=== PATIENT | female | born 1995 | race Two or more races ===

== ENCOUNTER 2021-09-17 16:46 | Inpatient (IN) | payer OTHER ==
[2021-09-17 17:51] VITALS: BMI 22.7
[2021-09-17] MEDS ORDERED: MAGNESIUM CITRATE 300 ML BOTTLE PO PRN (19:36)
[2021-09-17] MEDS ORDERED: MAGNESIUM HYDROX 2400MG/30ML ORAL SUSPENSION 30 ML CUP PO PRN (19:36)
[2021-09-17] MEDS ORDERED: BISMUTH SUBSALICYLATE 524 MG/30 ML PO PRN (19:36)
[2021-09-17] MEDS ORDERED: MAG HYDROX/AL HYDROX/SIMETH 30 ML UNIT-DOSE CUP PO PRN (19:36)
[2021-09-17] MEDS ORDERED: ONDANSETRON *ODT* 4 MG TABLET SL PRN (19:36)
[2021-09-17] MEDS ORDERED: MENTHOL/PHENOL 1 EACH UD MM PRN (19:36)
[2021-09-17] MEDS ORDERED: IBUPROFEN 400 MG TABLET (FP) PO PRN (19:36)
[2021-09-17] MEDS ORDERED: ACETAMINOPHEN 325 MG TABLET (FP) PO PRN ×2 (19:36)
[2021-09-17] MEDS ORDERED: diazePAM 5 MG TABLET PO ONE (19:38)
[2021-09-17] MEDS: THIAMINE HCL 100 MG TABLET (FP) PO SCH (21:40)
[2021-09-17] MEDS ORDERED: MELATONIN 5 MG TABLETS PO SCH (22:00)
[2021-09-17] MEDS: diazePAM 5 MG TABLET PO SCH (22:59)
[2021-09-18] MEDS: diazePAM 5 MG TABLET PO SCH ×4 (05:21→22:07)
[2021-09-18] MEDS: PRENATAL VITAMINS W/ FOLIC ACID TABLET (FP) PO SCH (10:19)
[2021-09-18] MEDS: ESCITALOPRAM OXALATE 20 MG TABLET PO SCH (10:19)
[2021-09-18] MEDS: METHOCARBAMOL 500 MG TABLET PO PRN ×2 (11:08→22:07)
[2021-09-18] MEDS ORDERED: FLU VACC QS2021-22(6MOS UP)/PF 60 MCG/0.5 ML SYRINGE IM ONE (13:00)
[2021-09-18] MEDS: diazePAM 5 MG TABLET PO PRN (15:21)
[2021-09-18] MEDS ORDERED: SUVOREXANT 10 MG TABLET PO PRN (22:00)
[2021-09-18] MEDS: hydrOXYzine PAMOATE 25 MG CAPSULE (FP) PO PRN (22:07)
[2021-09-18] MEDS: THIAMINE HCL 100 MG TABLET (FP) PO SCH (22:17)
[2021-09-19] MEDS: diazePAM 5 MG TABLET PO SCH ×3 (06:35→22:17)
[2021-09-19] MEDS: diazePAM 5 MG TABLET PO PRN (10:09)
[2021-09-19] MEDS: PRENATAL VITAMINS W/ FOLIC ACID TABLET (FP) PO SCH (10:09)
[2021-09-19] MEDS: ESCITALOPRAM OXALATE 20 MG TABLET PO SCH (10:09)
[2021-09-19 10:59] LABS: HEMATOCRIT 39.3 % (32.4-45.2); HEMOGLOBIN 12.9 GM/dL (10.7-15.3); MCH 27.6 pg (25.7-33.7); MCHC 32.8 g/dl (32.0-36.0); MEAN CELL VOLUME 83.9 fl (80-96); MEAN PLT VOLUME 8.5 fl (7.5-11.1); PLATELET COUNT 385 10^3/uL (134-434); RBC 4.69 M/mm3 (3.60-5.2); WHITE BLOOD COUNT 7.2 K/mm3 (4.0-10.0)
[2021-09-19 11:02] LABS: CALCIUM 10.2 mg/dL (8.5-10.1)
[2021-09-19 11:03] LABS: ALBUMIN 4.4 g/dl (3.4-5.0); BLOOD UREA NITROGEN 4.5 mg/dL (7-18)
[2021-09-19 11:06] LABS: CREATININE 0.7 mg/dL (0.55-1.3)
[2021-09-19 11:07] LABS: BILIRUBIN,TOTAL 1.1 mg/dL (0.2-1); TOT PROT 8.6 g/dl (6.4-8.2)
[2021-09-19] MEDS: NICOTINE POLACRILEX 2 MG GUM BUC PRN ×2 (13:01→18:43)
[2021-09-19] MEDS: THIAMINE HCL 100 MG TABLET (FP) PO SCH (22:16)
[2021-09-19] MEDS: METHOCARBAMOL 500 MG TABLET PO PRN (22:18)
[2021-09-20] MEDS: diazePAM 5 MG TABLET PO SCH ×2 (05:59→17:47)
[2021-09-20] MEDS: PRENATAL VITAMINS W/ FOLIC ACID TABLET (FP) PO SCH (10:07)
[2021-09-20] MEDS: ESCITALOPRAM OXALATE 20 MG TABLET PO SCH (10:07)
[2021-09-20] MEDS: METHOCARBAMOL 500 MG TABLET PO PRN ×2 (10:08→22:32)
[2021-09-20] MEDS ORDERED: POTASSIUM CHLORIDE TABS 20 MEQ TABLET.ER (FP) PO ONE (10:20)
[2021-09-20] MEDS ORDERED: FLUCONAZOLE 50 MG TABLET PO ONE (13:39)
[2021-09-20] MEDS: MUPIROCIN 2% TOPICAL OINTMENT 22 GM TUBE TP SCH ×3 (14:21→23:09)
[2021-09-20 14:39] LABS: CALCIUM 10.4 mg/dL (8.5-10.1)
[2021-09-20 14:40] LABS: ALBUMIN 4.2 g/dl (3.4-5.0); BLOOD UREA NITROGEN 6.6 mg/dL (7-18)
[2021-09-20 14:43] LABS: CREATININE 0.7 mg/dL (0.55-1.3)
[2021-09-20 14:44] LABS: BILIRUBIN,TOTAL 0.8 mg/dL (0.2-1)
[2021-09-20 14:45] LABS: TOT PROT 8.5 g/dl (6.4-8.2)
[2021-09-20] MEDS: hydrOXYzine PAMOATE 25 MG CAPSULE (FP) PO PRN ×2 (17:50→22:33)
[2021-09-20] MEDS ORDERED: QUEtiapine FUMARATE 50 MG TABLET PO SCH (22:00)
[2021-09-20] MEDS: THIAMINE HCL 100 MG TABLET (FP) PO SCH (22:33)
[2021-09-20] MEDS ORDERED: diazePAM 5 MG TABLET PO ONE (22:52)
[2021-09-21] MEDS ORDERED: diazePAM 5 MG TABLET PO ONE (06:00)
[2021-09-21 06:18] VITALS: PULSE 89
[2021-09-21 08:47] VITALS: BP 118/84; TEMP 96.9
[2021-09-21] MEDS ORDERED: POTASSIUM CHLORIDE TABS 20 MEQ TABLET.ER (FP) PO SCH (10:00)
[2021-09-21] MEDS: METHOCARBAMOL 500 MG TABLET PO PRN (10:16)
[2021-09-21] MEDS: PRENATAL VITAMINS W/ FOLIC ACID TABLET (FP) PO SCH (10:17)
[2021-09-21] MEDS: ESCITALOPRAM OXALATE 20 MG TABLET PO SCH (10:19)
[2021-09-21] MEDS: MUPIROCIN 2% TOPICAL OINTMENT 22 GM TUBE TP SCH (10:52)
== END 2021-09-21 11:37 | disposition other institution (70) | DRG 775 ==
LOC: YASAS 16:46 → Y3N 19:41
PROVIDERS: ADMIT Allergy & Immunology; ATTEND Allergy & Immunology
PROC: HZ2ZZZZ Detoxification Services for Substance Abuse Treatment (ICD-10-PCS; principal; 2021-09-17)
DX: F10.230 Alcohol dependence with withdrawal, uncomplicated (principal); F12.10 Cannabis abuse, uncomplicated; F17.210 Nicotine dependence, cigarettes, uncomplicated; F10.280 Alcohol dependence with alcohol-induced anxiety disorder; F10.282 Alcohol dependence with alcohol-induced sleep disorder; F31.81 Bipolar II disorder; G47.00 Insomnia, unspecified; R94.5 Abnormal results of liver function studies; R79.89 Other specified abnormal findings of blood chemistry; Z86.16 Personal history of COVID-19; Z86.69 Personal history of other diseases of the nervous system and sense organs
CPT/HCPCS: 36415; 80053; 85027; 86780; 90686; C9803; G0008; U0003; U0005

== ENCOUNTER 2021-09-21 11:46 | Inpatient (IN) | payer OTHER ==
[2021-09-21] MEDS ORDERED: MAG HYDROX/AL HYDROX/SIMETH 30 ML UNIT-DOSE CUP PO PRN (15:16)
[2021-09-21] MEDS ORDERED: MAGNESIUM CITRATE 300 ML BOTTLE PO PRN (15:16)
[2021-09-21] MEDS ORDERED: MENTHOL/PHENOL 1 EACH UD MM PRN (15:16)
[2021-09-21] MEDS ORDERED: NICOTINE POLACRILEX 2 MG GUM BUC PRN (15:16)
[2021-09-21] MEDS ORDERED: ACETAMINOPHEN 325 MG TABLET (FP) PO PRN (15:16)
[2021-09-21] MEDS ORDERED: LOPERAMIDE HCL 2 MG CAPSULE PO PRN (15:16)
[2021-09-21] MEDS ORDERED: IBUPROFEN 400 MG TABLET (FP) PO PRN (15:16)
[2021-09-21] MEDS ORDERED: MAGNESIUM HYDROX 2400MG/30ML ORAL SUSPENSION 30 ML CUP PO PRN (15:16)
[2021-09-21] MEDS ORDERED: P-EPHED 60MG/TRIPROLIDI 2.5MG TABLET PO PRN (15:16)
[2021-09-21] MEDS ORDERED: guaiFENesin 200 MG/10 ML 10 ML UNIT-DOSE CUPS PO PRN (15:16)
[2021-09-21] MEDS: NICOTINE 10 MG CARTRIDGE (INHALER) IH PRN (19:03)
[2021-09-21] MEDS: MELATONIN 5 MG TABLETS PO SCH (21:50)
[2021-09-21] MEDS: MUPIROCIN 2% TOPICAL OINTMENT 22 GM TUBE TP SCH (21:50)
[2021-09-21] MEDS: THIAMINE HCL 100 MG TABLET (FP) PO SCH (21:52)
[2021-09-21] MEDS: hydrOXYzine PAMOATE 25 MG CAPSULE (FP) PO PRN (21:54)
[2021-09-21] MEDS ORDERED: QUEtiapine FUMARATE 50 MG TABLET PO SCH (22:00)
[2021-09-21] MEDS ORDERED: QUEtiapine FUMARATE 100 MG TABLET (FP) PO SCH (22:00)
[2021-09-22] MEDS ORDERED: FLUCONAZOLE 50 MG TABLET PO ONE (10:00)
[2021-09-22] MEDS: ESCITALOPRAM OXALATE 20 MG TABLET PO SCH (10:23)
[2021-09-22] MEDS: MUPIROCIN 2% TOPICAL OINTMENT 22 GM TUBE TP SCH ×2 (10:23→21:14)
[2021-09-22] MEDS: PRENATAL VITAMINS W/ FOLIC ACID TABLET (FP) PO SCH (10:23)
[2021-09-22] MEDS: hydrOXYzine PAMOATE 25 MG CAPSULE (FP) PO PRN ×2 (10:24→21:15)
[2021-09-22] MEDS: GABAPENTIN 100 MG CAPSULE PO SCH ×2 (16:33→21:14)
[2021-09-22] MEDS: THIAMINE HCL 100 MG TABLET (FP) PO SCH (21:14)
[2021-09-22] MEDS: MELATONIN 5 MG TABLETS PO SCH (21:14)
[2021-09-22] MEDS: METHOCARBAMOL 500 MG TABLET PO PRN (21:14)
[2021-09-22] MEDS: QUEtiapine FUMARATE 50 MG TABLET PO SCH (21:16)
[2021-09-23] MEDS: GABAPENTIN 100 MG CAPSULE PO SCH ×3 (06:59→21:34)
[2021-09-23] MEDS: PRENATAL VITAMINS W/ FOLIC ACID TABLET (FP) PO SCH (10:47)
[2021-09-23] MEDS: ESCITALOPRAM OXALATE 20 MG TABLET PO SCH (10:48)
[2021-09-23] MEDS: MUPIROCIN 2% TOPICAL OINTMENT 22 GM TUBE TP SCH ×2 (10:48→21:34)
[2021-09-23] MEDS: hydrOXYzine PAMOATE 25 MG CAPSULE (FP) PO PRN ×3 (10:48→21:34)
[2021-09-23] MEDS: METHOCARBAMOL 500 MG TABLET PO PRN ×2 (10:48→21:35)
[2021-09-23] MEDS ORDERED: QUEtiapine FUMARATE 25 MG TABLET ONE (19:31)
[2021-09-23] MEDS: QUEtiapine FUMARATE 50 MG TABLET PO SCH (21:34)
[2021-09-23] MEDS: MELATONIN 5 MG TABLETS PO SCH (21:35)
[2021-09-23] MEDS: THIAMINE HCL 100 MG TABLET (FP) PO SCH (21:35)
[2021-09-24] MEDS: GABAPENTIN 100 MG CAPSULE PO SCH ×3 (06:42→22:00)
[2021-09-24] MEDS: PRENATAL VITAMINS W/ FOLIC ACID TABLET (FP) PO SCH (10:54)
[2021-09-24] MEDS: ESCITALOPRAM OXALATE 20 MG TABLET PO SCH (10:54)
[2021-09-24] MEDS: hydrOXYzine PAMOATE 25 MG CAPSULE (FP) PO PRN ×3 (10:56→22:00)
[2021-09-24] MEDS: MUPIROCIN 2% TOPICAL OINTMENT 22 GM TUBE TP SCH ×2 (10:56→22:01)
[2021-09-24] MEDS: METHOCARBAMOL 500 MG TABLET PO PRN ×2 (14:19→22:00)
[2021-09-24] MEDS: NICOTINE 10 MG CARTRIDGE (INHALER) IH PRN (16:44)
[2021-09-24] MEDS: THIAMINE HCL 100 MG TABLET (FP) PO SCH (22:00)
[2021-09-24] MEDS: QUEtiapine FUMARATE 50 MG TABLET PO SCH (22:00)
[2021-09-24] MEDS: MELATONIN 5 MG TABLETS PO SCH (22:01)
[2021-09-25] MEDS: GABAPENTIN 100 MG CAPSULE PO SCH ×3 (06:28→21:43)
[2021-09-25] MEDS ORDERED: PT OWN MED DRAWER 7, Y5N ONE (08:51)
[2021-09-25] MEDS: PRENATAL VITAMINS W/ FOLIC ACID TABLET (FP) PO SCH (10:25)
[2021-09-25] MEDS: ESCITALOPRAM OXALATE 20 MG TABLET PO SCH (10:25)
[2021-09-25] MEDS: MUPIROCIN 2% TOPICAL OINTMENT 22 GM TUBE TP SCH ×2 (10:25→23:09)
[2021-09-25] MEDS: METHOCARBAMOL 500 MG TABLET PO PRN ×2 (10:26→21:43)
[2021-09-25] MEDS: QUEtiapine FUMARATE 50 MG TABLET PO SCH (21:43)
[2021-09-25] MEDS: THIAMINE HCL 100 MG TABLET (FP) PO SCH (21:43)
[2021-09-25] MEDS: MELATONIN 5 MG TABLETS PO SCH (21:44)
[2021-09-25] MEDS: hydrOXYzine PAMOATE 25 MG CAPSULE (FP) PO PRN (21:46)
[2021-09-26] MEDS: GABAPENTIN 100 MG CAPSULE PO SCH ×3 (06:35→21:23)
[2021-09-26] MEDS: ESCITALOPRAM OXALATE 20 MG TABLET PO SCH (10:20)
[2021-09-26] MEDS: MUPIROCIN 2% TOPICAL OINTMENT 22 GM TUBE TP SCH ×2 (10:20→21:25)
[2021-09-26] MEDS: NICOTINE 10 MG CARTRIDGE (INHALER) IH PRN (10:20)
[2021-09-26] MEDS: PRENATAL VITAMINS W/ FOLIC ACID TABLET (FP) PO SCH (10:20)
[2021-09-26] MEDS: THIAMINE HCL 100 MG TABLET (FP) PO SCH (21:23)
[2021-09-26] MEDS: QUEtiapine FUMARATE 50 MG TABLET PO SCH (21:23)
[2021-09-26] MEDS: METHOCARBAMOL 500 MG TABLET PO PRN (21:24)
[2021-09-26] MEDS: MELATONIN 5 MG TABLETS PO SCH (21:25)
[2021-09-27] MEDS: hydrOXYzine PAMOATE 25 MG CAPSULE (FP) PO PRN ×3 (04:00→21:44)
[2021-09-27] MEDS: METHOCARBAMOL 500 MG TABLET PO PRN ×3 (04:00→21:44)
[2021-09-27] MEDS: GABAPENTIN 100 MG CAPSULE PO SCH ×3 (07:49→21:44)
[2021-09-27] MEDS: PRENATAL VITAMINS W/ FOLIC ACID TABLET (FP) PO SCH (10:43)
[2021-09-27] MEDS: ESCITALOPRAM OXALATE 20 MG TABLET PO SCH (10:43)
[2021-09-27] MEDS: NICOTINE 10 MG CARTRIDGE (INHALER) IH PRN (10:45)
[2021-09-27] MEDS: MUPIROCIN 2% TOPICAL OINTMENT 22 GM TUBE TP SCH ×2 (14:41→21:44)
[2021-09-27] MEDS: MELATONIN 5 MG TABLETS PO SCH (21:44)
[2021-09-27] MEDS: QUEtiapine FUMARATE 50 MG TABLET PO SCH (21:44)
[2021-09-27] MEDS: THIAMINE HCL 100 MG TABLET (FP) PO SCH (21:44)
[2021-09-28] MEDS: GABAPENTIN 100 MG CAPSULE PO SCH ×3 (06:39→22:24)
[2021-09-28] MEDS: MUPIROCIN 2% TOPICAL OINTMENT 22 GM TUBE TP SCH ×2 (10:10→23:09)
[2021-09-28] MEDS: PRENATAL VITAMINS W/ FOLIC ACID TABLET (FP) PO SCH (10:10)
[2021-09-28] MEDS: ESCITALOPRAM OXALATE 20 MG TABLET PO SCH (10:10)
[2021-09-28] MEDS: NICOTINE 10 MG CARTRIDGE (INHALER) IH PRN (16:53)
[2021-09-28] MEDS: hydrOXYzine PAMOATE 25 MG CAPSULE (FP) PO PRN (22:24)
[2021-09-28] MEDS: QUEtiapine FUMARATE 50 MG TABLET PO SCH (22:24)
[2021-09-28] MEDS: THIAMINE HCL 100 MG TABLET (FP) PO SCH (22:24)
[2021-09-28] MEDS: METHOCARBAMOL 500 MG TABLET PO PRN (22:25)
[2021-09-28] MEDS: MELATONIN 5 MG TABLETS PO SCH (23:09)
[2021-09-29] MEDS: GABAPENTIN 100 MG CAPSULE PO SCH ×3 (06:40→22:19)
[2021-09-29] MEDS: ESCITALOPRAM OXALATE 20 MG TABLET PO SCH (10:16)
[2021-09-29] MEDS: MUPIROCIN 2% TOPICAL OINTMENT 22 GM TUBE TP SCH ×2 (10:16→21:33)
[2021-09-29] MEDS: PRENATAL VITAMINS W/ FOLIC ACID TABLET (FP) PO SCH (10:16)
[2021-09-29] MEDS: NICOTINE 10 MG CARTRIDGE (INHALER) IH PRN ×2 (10:18→19:14)
[2021-09-29] MEDS: MELATONIN 5 MG TABLETS PO SCH (21:30)
[2021-09-29] MEDS: THIAMINE HCL 100 MG TABLET (FP) PO SCH (21:30)
[2021-09-29] MEDS: QUEtiapine FUMARATE 50 MG TABLET PO SCH (21:30)
[2021-09-29] MEDS: hydrOXYzine PAMOATE 25 MG CAPSULE (FP) PO PRN (21:33)
[2021-09-29] MEDS: METHOCARBAMOL 500 MG TABLET PO PRN (21:34)
[2021-09-30] MEDS: GABAPENTIN 100 MG CAPSULE PO SCH ×3 (06:31→21:38)
[2021-09-30] MEDS: PRENATAL VITAMINS W/ FOLIC ACID TABLET (FP) PO SCH (10:17)
[2021-09-30] MEDS: METHOCARBAMOL 500 MG TABLET PO PRN ×2 (10:18→21:38)
[2021-09-30] MEDS: ESCITALOPRAM OXALATE 20 MG TABLET PO SCH (10:18)
[2021-09-30] MEDS: MUPIROCIN 2% TOPICAL OINTMENT 22 GM TUBE TP SCH ×2 (10:19→21:39)
[2021-09-30] MEDS: NICOTINE 10 MG CARTRIDGE (INHALER) IH PRN (20:35)
[2021-09-30] MEDS: hydrOXYzine PAMOATE 25 MG CAPSULE (FP) PO PRN (21:38)
[2021-09-30] MEDS: THIAMINE HCL 100 MG TABLET (FP) PO SCH (21:38)
[2021-09-30] MEDS: QUEtiapine FUMARATE 50 MG TABLET PO SCH (21:38)
[2021-09-30] MEDS: MELATONIN 5 MG TABLETS PO SCH (21:39)
[2021-10-01] MEDS: GABAPENTIN 100 MG CAPSULE PO SCH ×3 (06:36→21:56)
[2021-10-01] MEDS: METHOCARBAMOL 500 MG TABLET PO PRN ×2 (10:03→21:56)
[2021-10-01] MEDS: hydrOXYzine PAMOATE 25 MG CAPSULE (FP) PO PRN ×3 (10:03→21:56)
[2021-10-01] MEDS: PRENATAL VITAMINS W/ FOLIC ACID TABLET (FP) PO SCH (10:03)
[2021-10-01] MEDS: ESCITALOPRAM OXALATE 20 MG TABLET PO SCH (10:03)
[2021-10-01] MEDS: MUPIROCIN 2% TOPICAL OINTMENT 22 GM TUBE TP SCH ×2 (10:03→21:57)
[2021-10-01] MEDS: THIAMINE HCL 100 MG TABLET (FP) PO SCH (21:56)
[2021-10-01] MEDS: QUEtiapine FUMARATE 50 MG TABLET PO SCH (21:56)
[2021-10-01] MEDS: MELATONIN 5 MG TABLETS PO SCH (21:57)
[2021-10-02] MEDS: GABAPENTIN 100 MG CAPSULE PO SCH ×2 (06:34→13:13)
[2021-10-02 06:52] VITALS: BP 123/79; PULSE 80; TEMP 97.5
[2021-10-02] MEDS: PRENATAL VITAMINS W/ FOLIC ACID TABLET (FP) PO SCH (10:31)
[2021-10-02] MEDS: MUPIROCIN 2% TOPICAL OINTMENT 22 GM TUBE TP SCH (10:31)
[2021-10-02] MEDS: ESCITALOPRAM OXALATE 20 MG TABLET PO SCH (10:31)
== END 2021-10-02 14:00 | disposition home or self-care (01) | DRG 772 ==
LOC: YASAS 11:46 → Y5N 11:51
PROVIDERS: ADMIT Allergy & Immunology; ATTEND Allergy & Immunology
PROC: HZ42ZZZ Group Counseling for Substance Abuse Treatment, Cognitive-Behavioral (ICD-10-PCS; principal; 2021-09-21)
DX: F10.20 Alcohol dependence, uncomplicated (principal); F12.10 Cannabis abuse, uncomplicated; F17.210 Nicotine dependence, cigarettes, uncomplicated; F31.81 Bipolar II disorder; F41.9 Anxiety disorder, unspecified; G47.00 Insomnia, unspecified; Z62.810 Personal history of physical and sexual abuse in childhood; Z86.16 Personal history of COVID-19; Z86.69 Personal history of other diseases of the nervous system and sense organs

== ENCOUNTER 2021-12-15 08:12 | Inpatient (IN) | payer OTHER ==
[2021-12-15 09:18] VITALS: BMI 20.6
[2021-12-15] MEDS ORDERED: chlordiazePOXIDE HCL 25 MG CAPSULE PO ONE ×2 (09:43→14:27)
[2021-12-15] MEDS ORDERED: ACETAMINOPHEN 325 MG TABLET (FP) PO PRN ×2 (09:43)
[2021-12-15] MEDS ORDERED: IBUPROFEN 400 MG TABLET (FP) PO PRN (09:43)
[2021-12-15] MEDS ORDERED: ONDANSETRON *ODT* 4 MG TABLET SL PRN (09:43)
[2021-12-15] MEDS ORDERED: MAGNESIUM CITRATE 300 ML BOTTLE PO PRN (09:43)
[2021-12-15] MEDS ORDERED: BISMUTH SUBSALICYLATE 524 MG/30 ML PO PRN (09:43)
[2021-12-15] MEDS ORDERED: MENTHOL/PHENOL 1 EACH UD MM PRN (09:43)
[2021-12-15] MEDS ORDERED: MAG HYDROX/AL HYDROX/SIMETH 30 ML UNIT-DOSE CUP PO PRN (09:43)
[2021-12-15] MEDS: PRENATAL VITAMINS W/ FOLIC ACID TABLET (FP) PO SCH (13:03)
[2021-12-15] MEDS: chlordiazePOXIDE HCL 25 MG CAPSULE PO PRN (13:19)
[2021-12-15] MEDS: chlordiazePOXIDE HCL 25 MG CAPSULE PO SCH ×3 (13:19→22:11)
[2021-12-15] MEDS: hydrOXYzine PAMOATE 25 MG CAPSULE (FP) PO SCH ×4 (13:19→22:11)
[2021-12-15] MEDS: METHOCARBAMOL 500 MG TABLET PO PRN ×2 (14:40→22:49)
[2021-12-15] MEDS: MELATONIN 5 MG TABLETS PO SCH (22:10)
[2021-12-15] MEDS: GABAPENTIN 100 MG CAPSULE PO SCH (22:10)
[2021-12-15] MEDS: QUEtiapine FUMARATE 50 MG TABLET PO SCH (22:11)
[2021-12-15] MEDS: THIAMINE HCL 100 MG TABLET (FP) PO SCH (22:11)
[2021-12-16] MEDS: GABAPENTIN 100 MG CAPSULE PO SCH ×3 (05:24→22:03)
[2021-12-16] MEDS: chlordiazePOXIDE HCL 25 MG CAPSULE PO SCH ×4 (05:24→22:04)
[2021-12-16] MEDS: hydrOXYzine PAMOATE 25 MG CAPSULE (FP) PO SCH ×5 (05:24→22:03)
[2021-12-16] MEDS: MAGNESIUM HYDROX 2400MG/30ML ORAL SUSPENSION 30 ML CUP PO PRN (05:26)
[2021-12-16] MEDS: METHOCARBAMOL 500 MG TABLET PO PRN ×2 (05:26→15:03)
[2021-12-16] MEDS: ESCITALOPRAM OXALATE 10 MG TABLET PO SCH (10:29)
[2021-12-16] MEDS: PRENATAL VITAMINS W/ FOLIC ACID TABLET (FP) PO SCH (10:29)
[2021-12-16] MEDS: chlordiazePOXIDE HCL 25 MG CAPSULE PO PRN (15:03)
[2021-12-16] MEDS: QUEtiapine FUMARATE 50 MG TABLET PO SCH (22:03)
[2021-12-16] MEDS: MELATONIN 5 MG TABLETS PO SCH (22:03)
[2021-12-16] MEDS: THIAMINE HCL 100 MG TABLET (FP) PO SCH (22:03)
[2021-12-17] MEDS: chlordiazePOXIDE HCL 25 MG CAPSULE PO SCH ×4 (06:42→22:40)
[2021-12-17] MEDS: GABAPENTIN 100 MG CAPSULE PO SCH ×3 (06:42→22:17)
[2021-12-17] MEDS: hydrOXYzine PAMOATE 25 MG CAPSULE (FP) PO SCH ×5 (06:42→22:17)
[2021-12-17] MEDS: PRENATAL VITAMINS W/ FOLIC ACID TABLET (FP) PO SCH (10:15)
[2021-12-17] MEDS: ESCITALOPRAM OXALATE 10 MG TABLET PO SCH (10:16)
[2021-12-17] MEDS: QUEtiapine FUMARATE 50 MG TABLET PO SCH (22:17)
[2021-12-17] MEDS: THIAMINE HCL 100 MG TABLET (FP) PO SCH (22:17)
[2021-12-17] MEDS: MELATONIN 5 MG TABLETS PO SCH (22:17)
[2021-12-18] MEDS ORDERED: chlordiazePOXIDE HCL 10 MG CAPSULE PO PRN
[2021-12-18] MEDS: GABAPENTIN 100 MG CAPSULE PO SCH ×3 (06:48→22:10)
[2021-12-18] MEDS: chlordiazePOXIDE HCL 10 MG CAPSULE PO SCH ×2 (06:48→10:14)
[2021-12-18] MEDS: hydrOXYzine PAMOATE 25 MG CAPSULE (FP) PO SCH ×5 (06:48→22:10)
[2021-12-18] MEDS: MAGNESIUM HYDROX 2400MG/30ML ORAL SUSPENSION 30 ML CUP PO PRN (06:53)
[2021-12-18] MEDS: PRENATAL VITAMINS W/ FOLIC ACID TABLET (FP) PO SCH (10:13)
[2021-12-18] MEDS: ESCITALOPRAM OXALATE 10 MG TABLET PO SCH (10:13)
[2021-12-18] MEDS: METHOCARBAMOL 500 MG TABLET PO PRN (10:13)
[2021-12-18 11:56] LABS: BASO % 0.4 % (0-2.0); EOS % 3.6 % (0-4.5); HEMATOCRIT 42.2 % (32.4-45.2); HEMOGLOBIN 13.6 GM/dL (10.7-15.3); MCH 26.5 pg (25.7-33.7); MCHC 32.2 g/dl (32.0-36.0); MEAN CELL VOLUME 82.5 fl (80-96); MEAN PLT VOLUME 9.4 fl (7.5-11.1); MONO % 9.3 % (3.8-10.2); NEUT % 60.7 % (42.8-82.8); PLATELET COUNT 270 10^3/uL (134-434); RBC 5.12 M/mm3 (3.60-5.2); RDW 18.5 % (11.6-15.6); WHITE BLOOD COUNT 6.6 K/mm3 (4.0-10.0)
[2021-12-18 12:52] LABS: CHLORIDE 82 mmol/L (98-107); SODIUM 134 mmol/L (136-145)
[2021-12-18 13:25] LABS: ALBUMIN 4.3 g/dl (3.4-5.0); CO2 41 mmol/L (21-32); GLUCOSE,RANDOM 81 mg/dL (74-106)
[2021-12-18 13:26] LABS: BLOOD UREA NITROGEN 8.5 mg/dL (7-18)
[2021-12-18 13:29] LABS: CREATININE 0.8 mg/dL (0.55-1.3); SGOT/AST 182 U/L (15-37); SGPT/ALT 102 U/L (13-61)
[2021-12-18 13:31] LABS: ALK PHOS 119 U/L (45-117); BILIRUBIN,TOTAL 1.3 mg/dL (0.2-1); TOT PROT 8.5 g/dl (6.4-8.2)
[2021-12-18 13:36] LABS: ANION GAP 11 MMOL/L (8-16)
[2021-12-18] MEDS ORDERED: POTASSIUM CHLORIDE TABS 20 MEQ TABLET.ER (FP) PO ONE ×3 (14:18→22:00)
[2021-12-18] MEDS: diazePAM 5 MG TABLET PO SCH ×2 (14:32→22:11)
[2021-12-18] MEDS: QUEtiapine FUMARATE 50 MG TABLET PO SCH (22:09)
[2021-12-18] MEDS: MELATONIN 5 MG TABLETS PO SCH (22:10)
[2021-12-18] MEDS: THIAMINE HCL 100 MG TABLET (FP) PO SCH (22:38)
[2021-12-19] MEDS ORDERED: chlordiazePOXIDE HCL 10 MG CAPSULE PO SCH (05:00)
[2021-12-19] MEDS: GABAPENTIN 100 MG CAPSULE PO SCH (05:54)
[2021-12-19] MEDS: hydrOXYzine PAMOATE 25 MG CAPSULE (FP) PO SCH (05:54)
[2021-12-19] MEDS ORDERED: diazePAM 5 MG TABLET PO ONE (06:00)
[2021-12-19] MEDS: MAGNESIUM HYDROX 2400MG/30ML ORAL SUSPENSION 30 ML CUP PO PRN (06:03)
[2021-12-19 08:36] VITALS: BP 119/79; PULSE 85; TEMP 96.8
[2021-12-20] MEDS ORDERED: chlordiazePOXIDE HCL 10 MG CAPSULE PO ONE (05:00)
== END 2021-12-19 10:03 | disposition home or self-care (01) | DRG 775 ==
LOC: YASAS 08:12 → Y3N 12:37
PROVIDERS: ADMIT Allergy & Immunology; ATTEND Allergy & Immunology
DX: F10.230 Alcohol dependence with withdrawal, uncomplicated (principal); F12.20 Cannabis dependence, uncomplicated; F31.81 Bipolar II disorder; F19.24 Other psychoactive substance dependence with psychoactive substance-induced mood disorder; E87.6 Hypokalemia; G47.00 Insomnia, unspecified; R94.5 Abnormal results of liver function studies; R63.4 Abnormal weight loss; Z68.20 Body mass index [BMI] 20.0-20.9, adult; Z86.16 Personal history of COVID-19; Z87.01 Personal history of pneumonia (recurrent); Z87.891 Personal history of nicotine dependence; Z86.69 Personal history of other diseases of the nervous system and sense organs
CPT/HCPCS: 36415; 80053; 81025; 85025; 86780; C9803; U0003; U0005

== ENCOUNTER 2022-01-09 19:47 | Inpatient (IN) | payer OTHER ==
[2022-01-09 22:20] VITALS: BMI 20.6
[2022-01-09] MEDS ORDERED: BISMUTH SUBSALICYLATE 524 MG/30 ML PO PRN (23:15)
[2022-01-09] MEDS ORDERED: LOPERAMIDE HCL 2 MG CAPSULE PO PRN (23:15)
[2022-01-09] MEDS ORDERED: MAGNESIUM CITRATE 300 ML BOTTLE PO PRN (23:15)
[2022-01-09] MEDS ORDERED: ACETAMINOPHEN 325 MG TABLET (FP) PO PRN (23:15)
[2022-01-09] MEDS ORDERED: MAG HYDROX/AL HYDROX/SIMETH 30 ML UNIT-DOSE CUP PO PRN (23:15)
[2022-01-09] MEDS ORDERED: MENTHOL/PHENOL 1 EACH UD MM PRN (23:15)
[2022-01-09] MEDS ORDERED: ONDANSETRON *ODT* 4 MG TABLET SL PRN (23:15)
[2022-01-10] MEDS ORDERED: diazePAM 5 MG TABLET ONE ×2 (01:45→06:18)
[2022-01-10] MEDS ORDERED: ACETAMINOPHEN 325 MG TABLET (FP) ONE ×2 (01:45→06:57)
[2022-01-10] MEDS: diazePAM 5 MG TABLET PO SCH ×5 (01:55→22:38)
[2022-01-10] MEDS: ACETAMINOPHEN 325 MG TABLET (FP) PO PRN ×3 (02:02→18:51)
[2022-01-10 11:24] LABS: HEMATOCRIT 36.2 % (32.4-45.2); HEMOGLOBIN 11.8 GM/dL (10.7-15.3); MCH 26.6 pg (25.7-33.7); MCHC 32.5 g/dl (32.0-36.0); MEAN CELL VOLUME 81.8 fl (80-96); MEAN PLT VOLUME 8.9 fl (7.5-11.1); PLATELET COUNT 452 10^3/uL (134-434); RBC 4.43 M/mm3 (3.60-5.2); RDW 20.6 % (11.6-15.6); WHITE BLOOD COUNT 6.6 K/mm3 (4.0-10.0)
[2022-01-10] MEDS: NICOTINE 14 MG/24 HOURS TOPICAL PATCH TD SCH (11:37)
[2022-01-10 11:38] LABS: CALCIUM 9.2 mg/dL (8.5-10.1)
[2022-01-10 11:39] LABS: ALBUMIN 3.1 g/dl (3.4-5.0); BLOOD UREA NITROGEN 5.1 mg/dL (7-18)
[2022-01-10 11:42] LABS: CREATININE 0.8 mg/dL (0.55-1.3)
[2022-01-10] MEDS: PRENATAL VITAMINS W/ FOLIC ACID TABLET (FP) PO SCH (11:43)
[2022-01-10 11:44] LABS: BILIRUBIN,TOTAL 0.7 mg/dL (0.2-1); TOT PROT 6.6 g/dl (6.4-8.2)
[2022-01-10] MEDS: ESCITALOPRAM OXALATE 20 MG TABLET PO SCH (11:45)
[2022-01-10] MEDS: NICOTINE 10 MG CARTRIDGE (INHALER) IH PRN (11:46)
[2022-01-10] MEDS ORDERED: POTASSIUM CHLORIDE TABS 20 MEQ TABLET.ER (FP) PO ONE (15:01)
[2022-01-10] MEDS: diazePAM 5 MG TABLET PO PRN (15:16)
[2022-01-10] MEDS: GABAPENTIN 300 MG CAPSULE PO SCH ×2 (15:16→22:39)
[2022-01-10] MEDS: FERROUS SO4 325 MG TABLET (FP) PO SCH (15:17)
[2022-01-10] MEDS: IBUPROFEN 400 MG TABLET (FP) PO PRN ×2 (15:18→22:39)
[2022-01-10] MEDS: METHOCARBAMOL 500 MG TABLET PO PRN (18:50)
[2022-01-10] MEDS: MELATONIN 5 MG TABLETS PO SCH (22:38)
[2022-01-10] MEDS: THIAMINE HCL 100 MG TABLET (FP) PO SCH (22:39)
[2022-01-10] MEDS: QUEtiapine FUMARATE 50 MG TABLET PO SCH (22:42)
[2022-01-11] MEDS: diazePAM 5 MG TABLET PO SCH ×3 (05:54→22:17)
[2022-01-11] MEDS: GABAPENTIN 300 MG CAPSULE PO SCH ×3 (05:54→22:17)
[2022-01-11] MEDS: ACETAMINOPHEN 325 MG TABLET (FP) PO PRN ×2 (05:54→18:14)
[2022-01-11] MEDS: PRENATAL VITAMINS W/ FOLIC ACID TABLET (FP) PO SCH (10:30)
[2022-01-11] MEDS: FERROUS SO4 325 MG TABLET (FP) PO SCH (10:30)
[2022-01-11] MEDS: ESCITALOPRAM OXALATE 20 MG TABLET PO SCH (10:31)
[2022-01-11] MEDS: NICOTINE 14 MG/24 HOURS TOPICAL PATCH TD SCH (10:32)
[2022-01-11] MEDS: IBUPROFEN 400 MG TABLET (FP) PO PRN (10:33)
[2022-01-11] MEDS: POTASSIUM CHLORIDE ORAL LIQUID 20 MEQ/15 ML PO SCH ×3 (14:56→22:18)
[2022-01-11] MEDS: diazePAM 5 MG TABLET PO PRN (18:14)
[2022-01-11] MEDS: MELATONIN 5 MG TABLETS PO SCH (22:17)
[2022-01-11] MEDS: THIAMINE HCL 100 MG TABLET (FP) PO SCH (22:17)
[2022-01-11] MEDS: QUEtiapine FUMARATE 50 MG TABLET PO SCH (22:18)
[2022-01-12] MEDS: POTASSIUM CHLORIDE ORAL LIQUID 20 MEQ/15 ML PO SCH (05:06)
[2022-01-12] MEDS: diazePAM 5 MG TABLET PO SCH ×2 (06:15→18:36)
[2022-01-12] MEDS: GABAPENTIN 300 MG CAPSULE PO SCH ×3 (06:16→22:04)
[2022-01-12] MEDS: NICOTINE 10 MG CARTRIDGE (INHALER) IH PRN (06:17)
[2022-01-12] MEDS: MAGNESIUM HYDROX 2400MG/30ML ORAL SUSPENSION 30 ML CUP PO PRN (06:33)
[2022-01-12] MEDS: IBUPROFEN 400 MG TABLET (FP) PO PRN ×2 (10:25→22:06)
[2022-01-12] MEDS: ESCITALOPRAM OXALATE 20 MG TABLET PO SCH (10:27)
[2022-01-12] MEDS: FERROUS SO4 325 MG TABLET (FP) PO SCH (10:27)
[2022-01-12] MEDS: PRENATAL VITAMINS W/ FOLIC ACID TABLET (FP) PO SCH (10:27)
[2022-01-12] MEDS: NICOTINE 14 MG/24 HOURS TOPICAL PATCH TD SCH (10:27)
[2022-01-12] MEDS: diazePAM 5 MG TABLET PO PRN ×2 (15:21→22:05)
[2022-01-12] MEDS: ACETAMINOPHEN 325 MG TABLET (FP) PO PRN (15:23)
[2022-01-12] MEDS: POTASSIUM CHLORIDE TABS 20 MEQ TABLET.ER (FP) PO SCH ×2 (16:16→22:04)
[2022-01-12] MEDS: METHOCARBAMOL 500 MG TABLET PO PRN (18:37)
[2022-01-12] MEDS: QUEtiapine FUMARATE 50 MG TABLET PO SCH (22:04)
[2022-01-12] MEDS: THIAMINE HCL 100 MG TABLET (FP) PO SCH (22:04)
[2022-01-12] MEDS: MELATONIN 5 MG TABLETS PO SCH (22:04)
[2022-01-13] MEDS: GABAPENTIN 300 MG CAPSULE PO SCH ×3 (05:43→22:04)
[2022-01-13] MEDS ORDERED: diazePAM 5 MG TABLET PO ONE (06:00)
[2022-01-13] MEDS: ACETAMINOPHEN 325 MG TABLET (FP) PO PRN ×2 (06:23→22:05)
[2022-01-13] MEDS: FERROUS SO4 325 MG TABLET (FP) PO SCH (10:14)
[2022-01-13] MEDS: PRENATAL VITAMINS W/ FOLIC ACID TABLET (FP) PO SCH (10:14)
[2022-01-13] MEDS: ESCITALOPRAM OXALATE 20 MG TABLET PO SCH (10:14)
[2022-01-13] MEDS: NICOTINE 14 MG/24 HOURS TOPICAL PATCH TD SCH (10:14)
[2022-01-13] MEDS: NICOTINE 10 MG CARTRIDGE (INHALER) IH PRN (10:15)
[2022-01-13] MEDS: METHOCARBAMOL 500 MG TABLET PO PRN ×2 (10:16→18:34)
[2022-01-13] MEDS: MELATONIN 5 MG TABLETS PO SCH (22:04)
[2022-01-13] MEDS: QUEtiapine FUMARATE 50 MG TABLET PO SCH (22:04)
[2022-01-13] MEDS: THIAMINE HCL 100 MG TABLET (FP) PO SCH (22:04)
[2022-01-14] MEDS: GABAPENTIN 300 MG CAPSULE PO SCH (05:45)
[2022-01-14] MEDS: IBUPROFEN 400 MG TABLET (FP) PO PRN (05:46)
[2022-01-14] MEDS: MAGNESIUM HYDROX 2400MG/30ML ORAL SUSPENSION 30 ML CUP PO PRN (05:47)
[2022-01-14 08:49] VITALS: BP 104/60; PULSE 92; TEMP 97.7
[2022-01-14] MEDS: FERROUS SO4 325 MG TABLET (FP) PO SCH (10:08)
[2022-01-14] MEDS: ESCITALOPRAM OXALATE 20 MG TABLET PO SCH (10:08)
[2022-01-14] MEDS: PRENATAL VITAMINS W/ FOLIC ACID TABLET (FP) PO SCH (10:08)
== END 2022-01-14 11:21 | disposition home or self-care (01) | DRG 773 ==
LOC: YASAS 19:47 → Y3N 01-10 10:15
PROVIDERS: ADMIT Allergy & Immunology; ATTEND Allergy & Immunology
PROC: HZ2ZZZZ Detoxification Services for Substance Abuse Treatment (ICD-10-PCS; principal; 2022-01-10)
DX: F10.230 Alcohol dependence with withdrawal, uncomplicated (principal); F11.20 Opioid dependence, uncomplicated; F17.210 Nicotine dependence, cigarettes, uncomplicated; F31.81 Bipolar II disorder; F19.24 Other psychoactive substance dependence with psychoactive substance-induced mood disorder; F41.0 Panic disorder [episodic paroxysmal anxiety]; F41.8 Other specified anxiety disorders; F32.A Depression, unspecified; E87.6 Hypokalemia; K21.9 Gastro-esophageal reflux disease without esophagitis; Z62.810 Personal history of physical and sexual abuse in childhood; Z86.16 Personal history of COVID-19
CPT/HCPCS: 36415; 80053; 84132; 85027; 86780; 93005; 93010; C9803; U0003; U0005

== ENCOUNTER 2022-03-14 17:28 | Inpatient (IN) | payer OTHER ==
[2022-03-14 18:32] VITALS: BMI 22.1
[2022-03-14] MEDS ORDERED: LOPERAMIDE HCL 2 MG CAPSULE PO PRN (18:52)
[2022-03-14] MEDS ORDERED: MAG HYDROX/AL HYDROX/SIMETH 30 ML UNIT-DOSE CUP PO PRN (18:52)
[2022-03-14] MEDS ORDERED: IBUPROFEN 400 MG TABLET (FP) PO PRN (18:52)
[2022-03-14] MEDS ORDERED: MAGNESIUM HYDROX 2400MG/30ML ORAL SUSPENSION 30 ML CUP PO PRN (18:52)
[2022-03-14] MEDS ORDERED: BENZOCAINE/MENTHOL (CHLORASEPTIC ) LOZENGE MM PRN (18:52)
[2022-03-14] MEDS ORDERED: DICYCLOMINE HCL 10 MG CAPSULE PO PRN (18:52)
[2022-03-14] MEDS ORDERED: ONDANSETRON *ODT* 4 MG TABLET SL PRN (18:52)
[2022-03-14] MEDS ORDERED: BISMUTH SUBSALICYLATE 524 MG/30 ML PO PRN (18:52)
[2022-03-14] MEDS ORDERED: ACETAMINOPHEN 325 MG TABLET (FP) PO PRN ×2 (18:52)
[2022-03-14] MEDS ORDERED: MAGNESIUM CITRATE 300 ML BOTTLE PO PRN (18:52)
[2022-03-14] MEDS ORDERED: diazePAM 5 MG TABLET PO ONE (18:54)
[2022-03-14] MEDS ORDERED: diazePAM 5 MG TABLET ONE (19:24)
[2022-03-14] MEDS ORDERED: QUEtiapine FUMARATE 50 MG TABLET PO ONE (21:30)
[2022-03-14] MEDS ORDERED: GABAPENTIN 300 MG CAPSULE PO ONE (21:33)
[2022-03-14] MEDS: diazePAM 5 MG TABLET PO SCH (22:02)
[2022-03-14] MEDS: MELATONIN 5 MG TABLETS PO PRN (22:02)
[2022-03-14] MEDS: THIAMINE HCL 100 MG TABLET (FP) PO SCH (22:02)
[2022-03-14] MEDS: hydrOXYzine PAMOATE 25 MG CAPSULE (FP) PO PRN (22:03)
[2022-03-15] MEDS: diazePAM 5 MG TABLET PO PRN ×3 (01:25→12:53)
[2022-03-15] MEDS: METHOCARBAMOL 500 MG TABLET PO PRN (04:50)
[2022-03-15] MEDS: diazePAM 5 MG TABLET PO SCH ×5 (04:50→22:03)
[2022-03-15 09:50] LABS: HEMATOCRIT 35.3 % (32.4-45.2); HEMOGLOBIN 11.8 GM/dL (10.7-15.3); MCH 25.9 pg (25.7-33.7); MCHC 33.5 g/dl (32.0-36.0); MEAN CELL VOLUME 77.2 fl (80-96); MEAN PLT VOLUME 8.6 fl (7.5-11.1); PLATELET COUNT 212 10^3/uL (134-434); RBC 4.58 M/mm3 (3.60-5.2); RDW 23.4 % (11.6-15.6); WHITE BLOOD COUNT 7.3 K/mm3 (4.0-10.0)
[2022-03-15 09:52] LABS: CALCIUM 8.9 mg/dL (8.5-10.1)
[2022-03-15 09:53] LABS: BLOOD UREA NITROGEN 8.7 mg/dL (7-18)
[2022-03-15 09:56] LABS: CREATININE 0.8 mg/dL (0.55-1.3)
[2022-03-15 09:58] LABS: BILIRUBIN,TOTAL 0.6 mg/dL (0.2-1); TOT PROT 7.8 g/dl (6.4-8.2)
[2022-03-15] MEDS: ESCITALOPRAM OXALATE 20 MG TABLET PO SCH (10:01)
[2022-03-15] MEDS: PRENATAL VITAMINS W/ FOLIC ACID TABLET (FP) PO SCH (10:01)
[2022-03-15] MEDS: hydrOXYzine PAMOATE 25 MG CAPSULE (FP) PO PRN (10:02)
[2022-03-15] MEDS: GABAPENTIN 400 MG CAPSULE PO SCH ×2 (13:06→22:03)
[2022-03-15] MEDS ORDERED: POTASSIUM CHLORIDE ORAL LIQUID 20 MEQ/15 ML PO ONE (15:11)
[2022-03-15] MEDS: NICOTINE 10 MG CARTRIDGE (INHALER) IH PRN ×2 (17:58→22:06)
[2022-03-15] MEDS: THIAMINE HCL 100 MG TABLET (FP) PO SCH (22:03)
[2022-03-15] MEDS: QUEtiapine FUMARATE 200 MG TABLET PO SCH (22:03)
[2022-03-15] MEDS: POTASSIUM CHLORIDE ORAL LIQUID 20 MEQ/15 ML PO SCH (23:00)
[2022-03-16] MEDS: diazePAM 5 MG TABLET PO SCH ×3 (06:36→22:19)
[2022-03-16] MEDS: GABAPENTIN 400 MG CAPSULE PO SCH ×3 (06:36→22:19)
[2022-03-16] MEDS: hydrOXYzine PAMOATE 25 MG CAPSULE (FP) PO PRN ×3 (06:38→22:19)
[2022-03-16] MEDS: METHOCARBAMOL 500 MG TABLET PO PRN ×2 (06:38→22:18)
[2022-03-16] MEDS: PRENATAL VITAMINS W/ FOLIC ACID TABLET (FP) PO SCH (10:37)
[2022-03-16] MEDS: diazePAM 5 MG TABLET PO PRN (10:37)
[2022-03-16] MEDS: ESCITALOPRAM OXALATE 20 MG TABLET PO SCH (10:37)
[2022-03-16] MEDS: POTASSIUM CHLORIDE ORAL LIQUID 20 MEQ/15 ML PO SCH ×2 (10:39→22:18)
[2022-03-16] MEDS: MELATONIN 5 MG TABLETS PO PRN (22:18)
[2022-03-16] MEDS: QUEtiapine FUMARATE 200 MG TABLET PO SCH (22:19)
[2022-03-16] MEDS: THIAMINE HCL 100 MG TABLET (FP) PO SCH (22:19)
[2022-03-17] MEDS: GABAPENTIN 400 MG CAPSULE PO SCH ×3 (06:54→22:19)
[2022-03-17] MEDS: diazePAM 5 MG TABLET PO SCH ×2 (06:54→17:28)
[2022-03-17] MEDS: ESCITALOPRAM OXALATE 20 MG TABLET PO SCH (10:22)
[2022-03-17] MEDS: NICOTINE 10 MG CARTRIDGE (INHALER) IH PRN (10:22)
[2022-03-17] MEDS: PRENATAL VITAMINS W/ FOLIC ACID TABLET (FP) PO SCH (10:22)
[2022-03-17] MEDS: METHOCARBAMOL 500 MG TABLET PO PRN ×2 (10:23→22:19)
[2022-03-17] MEDS: diazePAM 5 MG TABLET PO PRN ×2 (10:23→14:48)
[2022-03-17] MEDS: hydrOXYzine PAMOATE 25 MG CAPSULE (FP) PO PRN ×3 (10:23→22:19)
[2022-03-17 12:41] VITALS: TEMP 97.3
[2022-03-17 17:29] VITALS: PULSE 100
[2022-03-17 21:46] VITALS: BP 118/53
[2022-03-17] MEDS: QUEtiapine FUMARATE 200 MG TABLET PO SCH (22:19)
[2022-03-17] MEDS: THIAMINE HCL 100 MG TABLET (FP) PO SCH (22:20)
[2022-03-18 00:06] LABS: SARS-CoV-2 NAA Not Detected (Not Detected)
[2022-03-18] MEDS ORDERED: diazePAM 5 MG TABLET PO ONE (06:00)
== END 2022-03-17 11:59 | disposition left against medical advice (07) | DRG 770 ==
LOC: YASAS 17:28 → Y3N 19:06
PROVIDERS: ADMIT Allergy & Immunology; ATTEND Allergy & Immunology
PROC: HZ2ZZZZ Detoxification Services for Substance Abuse Treatment (ICD-10-PCS; principal; 2022-03-14)
DX: F10.230 Alcohol dependence with withdrawal, uncomplicated (principal); F12.20 Cannabis dependence, uncomplicated; F17.210 Nicotine dependence, cigarettes, uncomplicated; F31.81 Bipolar II disorder; F41.9 Anxiety disorder, unspecified; E87.8 Other disorders of electrolyte and fluid balance, not elsewhere classified; E87.1 Hypo-osmolality and hyponatremia; E87.6 Hypokalemia; R63.4 Abnormal weight loss; Z68.22 Body mass index [BMI] 22.0-22.9, adult; Z59.00 Homelessness unspecified
CPT/HCPCS: 36415; 80053; 85027; 86780; C9803-CS; U0003; U0005

== ENCOUNTER 2022-06-21 10:53 | Inpatient (IN) | payer OTHER ==
[2022-06-21 11:54] VITALS: BMI 22.8
[2022-06-21] MEDS ORDERED: guaiFENesin 200 MG/10 ML 10 ML UNIT-DOSE CUPS PO PRN (12:57)
[2022-06-21] MEDS ORDERED: IBUPROFEN 400 MG TABLET (FP) PO PRN (12:57)
[2022-06-21] MEDS ORDERED: ACETAMINOPHEN 325 MG TABLET (FP) PO PRN (12:57)
[2022-06-21] MEDS ORDERED: LOPERAMIDE HCL 2 MG CAPSULE PO PRN (12:57)
[2022-06-21] MEDS ORDERED: MAGNESIUM HYDROX 2400MG/30ML ORAL SUSPENSION 30 ML CUP PO PRN (12:57)
[2022-06-21] MEDS ORDERED: MAGNESIUM CITRATE 300 ML BOTTLE PO PRN (12:57)
[2022-06-21] MEDS ORDERED: MAG HYDROX/AL HYDROX/SIMETH 30 ML UNIT-DOSE CUP PO PRN (12:57)
[2022-06-21] MEDS ORDERED: P-EPHED 60MG/TRIPROLIDI 2.5MG TABLET PO PRN (12:57)
[2022-06-21 15:42] LABS: HEMATOCRIT 30.1 % (32.4-45.2); HEMOGLOBIN 10.1 GM/dL (10.7-15.3); MCH 25.8 pg (25.7-33.7); MCHC 33.5 g/dl (32.0-36.0); MEAN CELL VOLUME 77.1 fl (80-96); MEAN PLT VOLUME 8.1 fl (7.5-11.1); PLATELET COUNT 364 10^3/uL (134-434); RBC 3.91 M/mm3 (3.60-5.2); RDW 24.1 % (11.6-15.6); WHITE BLOOD COUNT 8.6 K/mm3 (4.0-10.0)
[2022-06-21 15:45] LABS: CHLORIDE 97 mmol/L (98-107); SODIUM 139 mmol/L (136-145)
[2022-06-21 15:50] LABS: ALBUMIN 3.1 g/dl (3.4-5.0); CALCIUM 8.9 mg/dL (8.5-10.1)
[2022-06-21 15:51] LABS: ANION GAP 9 MMOL/L (8-16); CO2 32 mmol/L (21-32); GLUCOSE,RANDOM 83 mg/dL (74-106)
[2022-06-21 15:55] LABS: CREATININE 0.6 mg/dL (0.55-1.3); SGOT/AST 16 U/L (15-37); SGPT/ALT 11 U/L (13-61); TOT PROT 6.7 g/dl (6.4-8.2)
[2022-06-21 15:56] LABS: BILIRUBIN,TOTAL 0.6 mg/dL (0.2-1)
[2022-06-21 15:57] LABS: ALK PHOS 86 U/L (45-117)
[2022-06-21 16:11] LABS: SYPHILIS W/ RPR CONF NON-REACTIVE (NONREACTIVE)
[2022-06-21] MEDS: hydrOXYzine PAMOATE 25 MG CAPSULE (FP) PO SCH ×3 (16:39→21:37)
[2022-06-21] MEDS: PRENATAL VITAMINS W/ FOLIC ACID TABLET (FP) PO SCH (16:39)
[2022-06-21] MEDS: NICOTINE 7 MG/24 HOURS TOPICAL PATCH TD SCH (16:40)
[2022-06-21 16:41] LABS: BLOOD UREA NITROGEN 2.8 mg/dL (7-18)
[2022-06-21 17:32] VITALS: RESP 18
[2022-06-21] MEDS ORDERED: POTASSIUM CHLORIDE ORAL LIQUID 20 MEQ/15 ML PO ONE (18:42)
[2022-06-21] MEDS: NICOTINE 10 MG CARTRIDGE (INHALER) IH PRN (18:52)
[2022-06-21] MEDS: METHOCARBAMOL 500 MG TABLET PO PRN (21:37)
[2022-06-21] MEDS: GABAPENTIN 300 MG CAPSULE PO SCH (21:38)
[2022-06-21] MEDS ORDERED: MELATONIN 5 MG TABLETS PO SCH (22:00)
[2022-06-21] MEDS ORDERED: THIAMINE HCL 100 MG TABLET (FP) PO SCH (22:00)
[2022-06-21] MEDS ORDERED: QUEtiapine FUMARATE 100 MG TABLET (FP) PO SCH (22:00)
[2022-06-21] MEDS ORDERED: QUEtiapine FUMARATE 50 MG TABLET PO SCH (22:00)
[2022-06-22] MEDS: NICOTINE 10 MG CARTRIDGE (INHALER) IH PRN (07:47)
[2022-06-22] MEDS: GABAPENTIN 300 MG CAPSULE PO SCH ×2 (07:47→14:13)
[2022-06-22] MEDS: hydrOXYzine PAMOATE 25 MG CAPSULE (FP) PO SCH ×4 (07:47→17:39)
[2022-06-22] MEDS ORDERED: ESCITALOPRAM OXALATE 10 MG TABLET PO SCH (10:00)
[2022-06-22] MEDS ORDERED: ESCITALOPRAM OXALATE 20 MG TABLET PO SCH (10:00)
[2022-06-22] MEDS: NICOTINE 7 MG/24 HOURS TOPICAL PATCH TD SCH (10:43)
[2022-06-22] MEDS: PRENATAL VITAMINS W/ FOLIC ACID TABLET (FP) PO SCH (10:43)
[2022-06-22] MEDS: METHOCARBAMOL 500 MG TABLET PO PRN (10:45)
[2022-06-22 14:01] LABS: CALCIUM 8.9 mg/dL (8.5-10.1)
[2022-06-22 14:02] LABS: BLOOD UREA NITROGEN 5.9 mg/dL (7-18)
[2022-06-22 14:05] LABS: CREATININE 0.6 mg/dL (0.55-1.3)
[2022-06-22 14:50] LABS: HIV INTERPRETATION NEGATIVE (NEGATIVE)
[2022-06-22 19:28] VITALS: BP 135/72; PULSE 100; TEMP 97.8
== END 2022-06-22 20:11 | disposition short-term general hospital (02) | DRG 772 ==
LOC: YASAS 10:53 → SUATTDRO 10:53 → Y5N 15:55
PROVIDERS: ADMIT Allergy & Immunology; ATTEND Psychiatry & Neurology Pain Medicine
PROC: HZ42ZZZ Group Counseling for Substance Abuse Treatment, Cognitive-Behavioral (ICD-10-PCS; principal; 2022-06-21)
DX: F10.20 Alcohol dependence, uncomplicated (principal); F13.20 Sedative, hypnotic or anxiolytic dependence, uncomplicated; F12.20 Cannabis dependence, uncomplicated; F17.210 Nicotine dependence, cigarettes, uncomplicated; F31.9 Bipolar disorder, unspecified; F10.282 Alcohol dependence with alcohol-induced sleep disorder; F41.9 Anxiety disorder, unspecified; F43.10 Post-traumatic stress disorder, unspecified; R56.9 Unspecified convulsions; S00.83XA Contusion of other part of head, initial encounter; W19.XXXA Unspecified fall, initial encounter; Y92.238 Other place in hospital as the place of occurrence of the external cause; R79.89 Other specified abnormal findings of blood chemistry; Z62.810 Personal history of physical and sexual abuse in childhood; Z86.16 Personal history of COVID-19; Z86.59 Personal history of other mental and behavioral disorders
CPT/HCPCS: 36415; 80048; 80053; 81025; 85027; 86780; 86803; 87389; 87811; C9803-CS; U0003; U0005

== ENCOUNTER 2022-07-24 12:47 | Inpatient (IN) | payer OTHER ==
[2022-07-24 14:53] VITALS: BMI 20.9
[2022-07-24] MEDS ORDERED: IBUPROFEN 400 MG TABLET (FP) PO PRN (17:47)
[2022-07-24] MEDS ORDERED: ACETAMINOPHEN 325 MG TABLET (FP) PO PRN (17:47)
[2022-07-24] MEDS ORDERED: MAGNESIUM CITRATE 300 ML BOTTLE PO PRN (17:47)
[2022-07-24] MEDS ORDERED: MAGNESIUM HYDROX 2400MG/30ML ORAL SUSPENSION 30 ML CUP PO PRN (17:47)
[2022-07-24] MEDS ORDERED: guaiFENesin 200 MG/10 ML 10 ML UNIT-DOSE CUPS PO PRN (17:47)
[2022-07-24] MEDS ORDERED: MAG HYDROX/AL HYDROX/SIMETH 30 ML UNIT-DOSE CUP PO PRN (17:47)
[2022-07-24] MEDS ORDERED: LOPERAMIDE HCL 2 MG CAPSULE PO PRN (17:47)
[2022-07-24] MEDS ORDERED: P-EPHED 60MG/TRIPROLIDI 2.5MG TABLET PO PRN (17:47)
[2022-07-24] MEDS ORDERED: NICOTINE POLACRILEX 2 MG GUM BC PRN (17:59)
[2022-07-24] MEDS: PRENATAL VITAMINS W/ FOLIC ACID TABLET (FP) PO SCH (21:33)
[2022-07-24] MEDS: NICOTINE 7 MG/24 HOURS TOPICAL PATCH TD SCH (21:33)
[2022-07-24] MEDS: hydrOXYzine PAMOATE 25 MG CAPSULE (FP) PO SCH ×2 (21:34→21:44)
[2022-07-24] MEDS: THIAMINE HCL 100 MG TABLET (FP) PO SCH (21:44)
[2022-07-24] MEDS: MELATONIN 5 MG TABLETS PO SCH (21:45)
[2022-07-24] MEDS: NICOTINE 10 MG CARTRIDGE (INHALER) IH PRN (21:47)
[2022-07-25] MEDS: hydrOXYzine PAMOATE 25 MG CAPSULE (FP) PO SCH ×5 (06:58→21:27)
[2022-07-25] MEDS: PRENATAL VITAMINS W/ FOLIC ACID TABLET (FP) PO SCH (10:20)
[2022-07-25] MEDS: NICOTINE 7 MG/24 HOURS TOPICAL PATCH TD SCH (10:21)
[2022-07-25] MEDS ORDERED: QUEtiapine FUMARATE 50 MG TABLET PO SCH (13:30)
[2022-07-25] MEDS ORDERED: GABAPENTIN 300 MG CAPSULE PO SCH (14:00)
[2022-07-25] MEDS: GABAPENTIN 400 MG CAPSULE PO SCH ×2 (14:22→21:26)
[2022-07-25] MEDS: QUEtiapine FUMARATE 50 MG TABLET PO PRN (14:23)
[2022-07-25] MEDS: ESCITALOPRAM OXALATE 20 MG TABLET PO SCH (14:23)
[2022-07-25 16:50] LABS: EPI CELLS >36 /uL (0-25.1); HYALINE CASTS 2 /uL (0-3.1); PH,URINE >= 9.0 (5.0-8.0); URINE APPEARANCE CLEAR; URINE BACTERIA 475 /uL (0-1359); URINE BILIRUBIN NEGATIVE (NEGATIVE); URINE COLOR YELLOW; URINE GLUCOSE (UA) NEGATIVE (NEGATIVE); URINE KETONE NEGATIVE (NEGATIVE); URINE LEUK ESTERASE 1+ (NEGATIVE); URINE NITRITE NEGATIVE (NEGATIVE); URINE PROTEIN TRACE (NEGATIVE); URINE RBC 5 /uL (0-23.9); URINE WBC 37 /uL (0-25.8)
[2022-07-25] MEDS: THIAMINE HCL 100 MG TABLET (FP) PO SCH (21:26)
[2022-07-25] MEDS: MELATONIN 5 MG TABLETS PO SCH (21:27)
[2022-07-25] MEDS: DIVALPROEX SODIUM 250 MG TABLET E.C. PO SCH (21:28)
[2022-07-25] MEDS: QUEtiapine FUMARATE 200 MG TABLET PO SCH (21:28)
[2022-07-26] MEDS: GABAPENTIN 400 MG CAPSULE PO SCH ×3 (06:32→22:00)
[2022-07-26] MEDS: hydrOXYzine PAMOATE 25 MG CAPSULE (FP) PO SCH ×4 (06:32→17:30)
[2022-07-26] MEDS: PRENATAL VITAMINS W/ FOLIC ACID TABLET (FP) PO SCH (10:13)
[2022-07-26] MEDS: NICOTINE 7 MG/24 HOURS TOPICAL PATCH TD SCH (10:14)
[2022-07-26] MEDS: ESCITALOPRAM OXALATE 20 MG TABLET PO SCH (10:14)
[2022-07-26 10:45] LABS: HEMOGLOBIN 9.7 GM/dL (10.7-15.3); MCH 24.4 pg (25.7-33.7); MCHC 32.4 g/dl (32.0-36.0); MEAN CELL VOLUME 75.4 fl (80-96); MEAN PLT VOLUME 8.3 fl (7.5-11.1); PLATELET COUNT 412 10^3/uL (134-434); RBC 3.97 M/mm3 (3.60-5.2); RDW 23.1 % (11.6-15.6); WHITE BLOOD COUNT 5.4 K/mm3 (4.0-10.0)
[2022-07-26 10:55] LABS: ALBUMIN 2.8 g/dl (3.4-5.0); BLOOD UREA NITROGEN 6.3 mg/dL (7-18)
[2022-07-26 10:58] LABS: CREATININE 0.6 mg/dL (0.55-1.3)
[2022-07-26 11:00] LABS: BILIRUBIN,TOTAL 0.6 mg/dL (0.2-1); TOT PROT 6.3 g/dl (6.4-8.2)
[2022-07-26 11:17] LABS: SYPHILIS W/ RPR CONF NON-REACTIVE (NONREACTIVE)
[2022-07-26] MEDS: QUEtiapine FUMARATE 50 MG TABLET PO PRN (16:44)
[2022-07-26] MEDS: FERROUS SO4 325 MG TABLET (FP) PO SCH (17:30)
[2022-07-26] MEDS: propRANOLol HCL 10 MG TABLET PO ONE ×2 (19:57→22:00)
[2022-07-26] MEDS ORDERED: hydrOXYzine PAMOATE 25 MG CAPSULE (FP) PO PRN (19:58)
[2022-07-26] MEDS: DIVALPROEX SODIUM 250 MG TABLET E.C. PO SCH (22:00)
[2022-07-26] MEDS: THIAMINE HCL 100 MG TABLET (FP) PO SCH (22:00)
[2022-07-26] MEDS ORDERED: LORazepam 2 MG/ML SDV VIAL IM ONE (22:00)
[2022-07-26] MEDS: QUEtiapine FUMARATE 200 MG TABLET PO SCH (22:00)
[2022-07-26] MEDS: levETIRAcetam 500 MG TABLET (FP) PO SCH (22:00)
[2022-07-27] MEDS: DIVALPROEX SODIUM 250 MG TABLET E.C. PO SCH ×2 (00:46→22:06)
[2022-07-27] MEDS: GABAPENTIN 400 MG CAPSULE PO SCH ×4 (00:47→22:05)
[2022-07-27] MEDS: levETIRAcetam 500 MG TABLET (FP) PO SCH ×3 (00:47→22:06)
[2022-07-27] MEDS: THIAMINE HCL 100 MG TABLET (FP) PO SCH ×2 (00:48→22:06)
[2022-07-27] MEDS: QUEtiapine FUMARATE 200 MG TABLET PO SCH ×2 (00:48→22:05)
[2022-07-27] MEDS ORDERED: levETIRAcetam 500 MG TABLET (FP) PO ONE (02:15)
[2022-07-27] MEDS ORDERED: QUEtiapine FUMARATE 200 MG TABLET PO ONE (02:16)
[2022-07-27] MEDS ORDERED: propRANOLol HCL 10 MG TABLET PO ONE (02:19)
[2022-07-27] MEDS ORDERED: THIAMINE HCL 100 MG TABLET (FP) PO ONE (02:31)
[2022-07-27] MEDS: ESCITALOPRAM OXALATE 20 MG TABLET PO SCH (10:38)
[2022-07-27] MEDS: NICOTINE 7 MG/24 HOURS TOPICAL PATCH TD SCH (10:38)
[2022-07-27] MEDS: PRENATAL VITAMINS W/ FOLIC ACID TABLET (FP) PO SCH (10:38)
[2022-07-27] MEDS: FERROUS SO4 325 MG TABLET (FP) PO SCH ×3 (10:38→17:27)
[2022-07-27] MEDS: hydrOXYzine PAMOATE 25 MG CAPSULE (FP) PO PRN ×2 (12:59→22:06)
[2022-07-27] MEDS: MELATONIN 5 MG TABLETS PO PRN (22:05)
[2022-07-28] MEDS: FERROUS SO4 325 MG TABLET (FP) PO SCH ×3 (07:02→20:25)
[2022-07-28] MEDS: GABAPENTIN 400 MG CAPSULE PO SCH ×3 (07:02→21:58)
[2022-07-28] MEDS: PRENATAL VITAMINS W/ FOLIC ACID TABLET (FP) PO SCH (10:28)
[2022-07-28] MEDS: NICOTINE 10 MG CARTRIDGE (INHALER) IH PRN (10:28)
[2022-07-28] MEDS: NICOTINE 7 MG/24 HOURS TOPICAL PATCH TD SCH (10:28)
[2022-07-28] MEDS: levETIRAcetam 500 MG TABLET (FP) PO SCH ×2 (10:28→21:58)
[2022-07-28] MEDS: ESCITALOPRAM OXALATE 20 MG TABLET PO SCH (10:28)
[2022-07-28] MEDS: QUEtiapine FUMARATE 50 MG TABLET PO PRN (10:29)
[2022-07-28] MEDS: hydrOXYzine PAMOATE 25 MG CAPSULE (FP) PO PRN (14:24)
[2022-07-28] MEDS: DIVALPROEX SODIUM 250 MG TABLET E.C. PO SCH (21:58)
[2022-07-28] MEDS: MELATONIN 5 MG TABLETS PO PRN (21:58)
[2022-07-28] MEDS: QUEtiapine FUMARATE 200 MG TABLET PO SCH (21:58)
[2022-07-28] MEDS: THIAMINE HCL 100 MG TABLET (FP) PO SCH (21:59)
[2022-07-29] MEDS: GABAPENTIN 400 MG CAPSULE PO SCH ×3 (06:32→21:31)
[2022-07-29 07:02] VITALS: RESP 16
[2022-07-29] MEDS: FERROUS SO4 325 MG TABLET (FP) PO SCH ×3 (07:36→18:05)
[2022-07-29] MEDS: PRENATAL VITAMINS W/ FOLIC ACID TABLET (FP) PO SCH (10:59)
[2022-07-29] MEDS: ESCITALOPRAM OXALATE 20 MG TABLET PO SCH (10:59)
[2022-07-29] MEDS: levETIRAcetam 500 MG TABLET (FP) PO SCH ×2 (10:59→21:31)
[2022-07-29] MEDS: NICOTINE 7 MG/24 HOURS TOPICAL PATCH TD SCH (11:00)
[2022-07-29] MEDS: QUEtiapine FUMARATE 50 MG TABLET PO PRN (15:57)
[2022-07-29] MEDS: hydrOXYzine PAMOATE 25 MG CAPSULE (FP) PO PRN ×2 (18:05→21:32)
[2022-07-29] MEDS: THIAMINE HCL 100 MG TABLET (FP) PO SCH (21:31)
[2022-07-29] MEDS: QUEtiapine FUMARATE 200 MG TABLET PO SCH (21:31)
[2022-07-29] MEDS: DIVALPROEX SODIUM 250 MG TABLET E.C. PO SCH (21:31)
[2022-07-30] MEDS: hydrOXYzine PAMOATE 25 MG CAPSULE (FP) PO PRN ×2 (06:44→17:43)
[2022-07-30] MEDS: GABAPENTIN 400 MG CAPSULE PO SCH ×3 (06:44→21:18)
[2022-07-30 07:11] VITALS: BP 109/70; PULSE 87; TEMP 98.5
[2022-07-30] MEDS: FERROUS SO4 325 MG TABLET (FP) PO SCH ×3 (07:13→17:43)
[2022-07-30] MEDS: ESCITALOPRAM OXALATE 20 MG TABLET PO SCH (10:23)
[2022-07-30] MEDS: NICOTINE 7 MG/24 HOURS TOPICAL PATCH TD SCH (10:23)
[2022-07-30] MEDS: PRENATAL VITAMINS W/ FOLIC ACID TABLET (FP) PO SCH (10:23)
[2022-07-30] MEDS: levETIRAcetam 500 MG TABLET (FP) PO SCH ×2 (10:23→21:18)
[2022-07-30] MEDS: NICOTINE 10 MG CARTRIDGE (INHALER) IH PRN (10:24)
[2022-07-30] MEDS: QUEtiapine FUMARATE 50 MG TABLET PO PRN (15:37)
[2022-07-30] MEDS: DIVALPROEX SODIUM 250 MG TABLET E.C. PO SCH (21:18)
[2022-07-30] MEDS: THIAMINE HCL 100 MG TABLET (FP) PO SCH (21:18)
[2022-07-30] MEDS: QUEtiapine FUMARATE 200 MG TABLET PO SCH (21:18)
[2022-07-31] MEDS: FERROUS SO4 325 MG TABLET (FP) PO SCH ×3 (07:48→17:23)
[2022-07-31] MEDS: GABAPENTIN 400 MG CAPSULE PO SCH ×2 (07:48→14:19)
[2022-07-31] MEDS: levETIRAcetam 500 MG TABLET (FP) PO SCH (10:32)
[2022-07-31] MEDS: PRENATAL VITAMINS W/ FOLIC ACID TABLET (FP) PO SCH (10:32)
[2022-07-31] MEDS: NICOTINE 7 MG/24 HOURS TOPICAL PATCH TD SCH (10:32)
[2022-07-31] MEDS: ESCITALOPRAM OXALATE 20 MG TABLET PO SCH (10:32)
[2022-07-31] MEDS: NICOTINE 10 MG CARTRIDGE (INHALER) IH PRN (10:33)
[2022-07-31] MEDS: QUEtiapine FUMARATE 50 MG TABLET PO PRN (10:33)
[2022-07-31] MEDS ORDERED: hydrOXYzine PAMOATE 50 MG CAPSULE (FP) PO PRN (13:14)
== END 2022-07-31 16:50 | disposition left against medical advice (07) | DRG 770 ==
LOC: YASAS 12:47 → Y5N 21:10
PROVIDERS: ADMIT Allergy & Immunology; ATTEND Psychiatry & Neurology Pain Medicine
PROC: HZ42ZZZ Group Counseling for Substance Abuse Treatment, Cognitive-Behavioral (ICD-10-PCS; principal; 2022-07-24)
DX: F10.20 Alcohol dependence, uncomplicated (principal); F12.20 Cannabis dependence, uncomplicated; F17.210 Nicotine dependence, cigarettes, uncomplicated; F10.280 Alcohol dependence with alcohol-induced anxiety disorder; F10.282 Alcohol dependence with alcohol-induced sleep disorder; F10.24 Alcohol dependence with alcohol-induced mood disorder; F31.9 Bipolar disorder, unspecified; F19.24 Other psychoactive substance dependence with psychoactive substance-induced mood disorder; D64.9 Anemia, unspecified; G62.9 Polyneuropathy, unspecified; G40.909 Epilepsy, unspecified, not intractable, without status epilepticus; K21.9 Gastro-esophageal reflux disease without esophagitis; Z62.810 Personal history of physical and sexual abuse in childhood; Z86.16 Personal history of COVID-19
CPT/HCPCS: 36415; 80053; 80164; 80177; 81003; 81025; 82962; 85027; 86780; 86803; 87086; 99283-25; C9803-CS; U0003; U0005

== ENCOUNTER 2022-07-26 22:35 | Emergency (ER) | payer OTHER ==
[2022-07-26 22:57] VITALS: BP 123/91; PULSE 118; RESP 18; TEMP 98.2; BMI 20.9
[2022-07-26] MEDS ORDERED: VALPROATE SODIUM 250 MG/5 ML UNIT DOSE CUP PO SCH (23:00)
[2022-07-26] MEDS ORDERED: chlordiazePOXIDE HCL 25 MG CAPSULE PO ONE (23:11)
[2022-07-26] MEDS ORDERED: chlordiazePOXIDE HCL 25 MG CAPSULE ONE (23:34)
== END 2022-07-27 01:03 | disposition home or self-care (01) ==
LOC: JER 22:35
DX: G40.89 Other seizures (principal)
CPT/HCPCS: 36415; 80164; 80177; 99283-25

== ENCOUNTER 2022-12-08 09:28 | Inpatient (IN) | payer OTHER ==
[2022-12-08 10:18] VITALS: BMI 23.2
[2022-12-08] MEDS ORDERED: chlordiazePOXIDE HCL 25 MG CAPSULE PO SCH (11:00)
[2022-12-08] MEDS ORDERED: BISMUTH SUBSALICYLATE 524 MG/30 ML PO PRN (11:04)
[2022-12-08] MEDS ORDERED: MELATONIN 5 MG TABLETS PO PRN (11:04)
[2022-12-08] MEDS ORDERED: ACETAMINOPHEN 325 MG TABLET (FP) PO PRN ×2 (11:04)
[2022-12-08] MEDS ORDERED: ONDANSETRON *ODT* 4 MG TABLET SL PRN (11:04)
[2022-12-08] MEDS ORDERED: P-EPHED 60MG/TRIPROLIDI 2.5MG TABLET PO PRN (11:04)
[2022-12-08] MEDS ORDERED: NALOXONE HCL 0.4 MG/ML VIAL IM PRN (11:04)
[2022-12-08] MEDS ORDERED: MAG HYDROX/AL HYDROX/SIMETH 30 ML UNIT-DOSE CUP PO PRN (11:04)
[2022-12-08] MEDS ORDERED: guaiFENesin 200 MG/10 ML 10 ML UNIT-DOSE CUPS PO PRN (11:04)
[2022-12-08] MEDS ORDERED: POLYETHYLENE GLYCOL (HEALTHYLAX) 3350 17 GM PACKET PO PRN (11:04)
[2022-12-08] MEDS ORDERED: LOPERAMIDE HCL 2 MG CAPSULE PO PRN (11:04)
[2022-12-08] MEDS ORDERED: NALOXONE HCL (KLOXXADO) 8 MG SPRAY NS PRN (11:04)
[2022-12-08] MEDS ORDERED: IBUPROFEN 400 MG TABLET (FP) PO PRN (11:04)
[2022-12-08] MEDS ORDERED: IBUPROFEN 600 MG TABLET (FP) PO PRN (11:04)
[2022-12-08] MEDS ORDERED: NICOTINE POLACRILEX 2 MG GUM BUC PRN (11:04)
[2022-12-08] MEDS ORDERED: MAGNESIUM HYDROX 2400MG/30ML ORAL SUSPENSION 30 ML CUP PO PRN (11:04)
[2022-12-08] MEDS ORDERED: DICYCLOMINE HCL 10 MG CAPSULE PO PRN (11:04)
[2022-12-08] MEDS ORDERED: BENZOCAINE/MENTHOL (CHLORASEPTIC ) LOZENGE MM PRN (11:04)
[2022-12-08] MEDS ORDERED: chlordiazePOXIDE HCL 25 MG CAPSULE PO PRN (11:07)
[2022-12-08] MEDS ORDERED: cloNIDine HCL 0.1 MG TABLET PO PRN (11:07)
[2022-12-08] MEDS ORDERED: levETIRAcetam 500 MG TABLET (FP) PO ONE (11:52)
[2022-12-08] MEDS: levETIRAcetam 500 MG TABLET (FP) PO SCH ×2 (11:54→21:54)
[2022-12-08] MEDS: diazePAM 5 MG TABLET PO SCH ×3 (11:57→22:02)
[2022-12-08] MEDS: diazePAM 5 MG TABLET PO PRN (12:38)
[2022-12-08] MEDS: NICOTINE 10 MG CARTRIDGE (INHALER) IH PRN (20:12)
[2022-12-08] MEDS: QUEtiapine FUMARATE 200 MG TABLET PO SCH (21:49)
[2022-12-08] MEDS: GABAPENTIN 100 MG CAPSULE PO SCH (21:49)
[2022-12-08] MEDS: THIAMINE HCL 100 MG TABLET (FP) PO SCH (21:49)
[2022-12-08] MEDS ORDERED: methaDONE HCL 10 MG TABLET (FOR DETOX USE ONLY) PO ONE (22:00)
[2022-12-09] MEDS: diazePAM 5 MG TABLET PO SCH ×4 (06:00→22:08)
[2022-12-09] MEDS: NICOTINE 10 MG CARTRIDGE (INHALER) IH PRN ×2 (06:02→17:56)
[2022-12-09] MEDS: levETIRAcetam 500 MG TABLET (FP) PO SCH ×2 (10:10→22:07)
[2022-12-09] MEDS: PRENATAL VITAMINS W/ FOLIC ACID TABLET (FP) PO SCH (10:10)
[2022-12-09] MEDS: GABAPENTIN 100 MG CAPSULE PO SCH ×2 (10:10→22:07)
[2022-12-09] MEDS: ESCITALOPRAM OXALATE 20 MG TABLET PO SCH (10:10)
[2022-12-09] MEDS: METHOCARBAMOL 500 MG TABLET PO PRN (19:49)
[2022-12-09] MEDS: THIAMINE HCL 100 MG TABLET (FP) PO SCH (22:07)
[2022-12-09] MEDS: QUEtiapine FUMARATE 200 MG TABLET PO SCH (22:07)
[2022-12-10] MEDS ORDERED: chlordiazePOXIDE HCL 25 MG CAPSULE PO SCH (05:00)
[2022-12-10] MEDS: diazePAM 5 MG TABLET PO SCH ×3 (05:27→22:39)
[2022-12-10] MEDS: NICOTINE 10 MG CARTRIDGE (INHALER) IH PRN ×2 (09:56→17:41)
[2022-12-10] MEDS: GABAPENTIN 100 MG CAPSULE PO SCH ×2 (09:57→22:37)
[2022-12-10] MEDS: ESCITALOPRAM OXALATE 20 MG TABLET PO SCH (09:58)
[2022-12-10] MEDS: PRENATAL VITAMINS W/ FOLIC ACID TABLET (FP) PO SCH (09:58)
[2022-12-10] MEDS: levETIRAcetam 500 MG TABLET (FP) PO SCH ×2 (09:58→22:37)
[2022-12-10] MEDS: METHOCARBAMOL 500 MG TABLET PO PRN ×2 (09:58→18:42)
[2022-12-10] MEDS ORDERED: methaDONE HCL 10 MG TABLET (FOR DETOX USE ONLY) PO ONE (10:00)
[2022-12-10 10:29] LABS: HEMATOCRIT 30.6 % (32.4-45.2); HEMOGLOBIN 9.6 GM/dL (10.7-15.3); MCH 23.2 pg (25.7-33.7); MCHC 31.4 g/dl (32.0-36.0); MEAN PLT VOLUME 8.7 fl (7.5-11.1); PLATELET COUNT 418 10^3/uL (134-434); RBC 4.14 M/mm3 (3.60-5.2); RDW 19.5 % (11.6-15.6); WHITE BLOOD COUNT 7.4 K/mm3 (4.0-10.0)
[2022-12-10 11:10] LABS: CREATININE 0.6 mg/dL (0.55-1.3)
[2022-12-10 11:11] LABS: BLOOD UREA NITROGEN 7.3 mg/dL (7-18)
[2022-12-10 11:16] LABS: BILIRUBIN,TOTAL 0.2 mg/dL (0.2-1)
[2022-12-10] MEDS: diazePAM 5 MG TABLET PO PRN (17:27)
[2022-12-10] MEDS: THIAMINE HCL 100 MG TABLET (FP) PO SCH (22:37)
[2022-12-10] MEDS: QUEtiapine FUMARATE 200 MG TABLET PO SCH (22:37)
[2022-12-11] MEDS ORDERED: chlordiazePOXIDE HCL 10 MG CAPSULE PO PRN
[2022-12-11] MEDS ORDERED: chlordiazePOXIDE HCL 10 MG CAPSULE PO SCH (05:00)
[2022-12-11] MEDS ORDERED: methaDONE HCL 10 MG TABLET (FOR DETOX USE ONLY) PO ONE (06:00)
[2022-12-11] MEDS: diazePAM 5 MG TABLET PO SCH ×2 (06:02→17:46)
[2022-12-11] MEDS: levETIRAcetam 500 MG TABLET (FP) PO SCH ×2 (10:14→22:21)
[2022-12-11] MEDS: PRENATAL VITAMINS W/ FOLIC ACID TABLET (FP) PO SCH (10:14)
[2022-12-11] MEDS: ESCITALOPRAM OXALATE 20 MG TABLET PO SCH (10:14)
[2022-12-11] MEDS: GABAPENTIN 100 MG CAPSULE PO SCH ×2 (10:14→22:22)
[2022-12-11] MEDS: diazePAM 5 MG TABLET PO PRN (10:17)
[2022-12-11] MEDS: METHOCARBAMOL 500 MG TABLET PO PRN (13:50)
[2022-12-11] MEDS: NICOTINE 10 MG CARTRIDGE (INHALER) IH PRN ×2 (14:55→22:23)
[2022-12-11] MEDS ORDERED: SUVOREXANT 10 MG TABLET PO PRN (22:00)
[2022-12-11] MEDS: QUEtiapine FUMARATE 200 MG TABLET PO SCH (22:21)
[2022-12-11] MEDS: THIAMINE HCL 100 MG TABLET (FP) PO SCH (22:22)
[2022-12-12] MEDS ORDERED: chlordiazePOXIDE HCL 10 MG CAPSULE PO SCH (05:00)
[2022-12-12] MEDS ORDERED: diazePAM 5 MG TABLET PO ONE (06:00)
[2022-12-12 09:32] VITALS: BP 115/75; PULSE 104; RESP 18; TEMP 96.8
[2022-12-12] MEDS ORDERED: NALOXONE (NARCAN) HCL 4 MG/0.1 ML SPRAY NS ONE (09:52)
[2022-12-12] MEDS: PRENATAL VITAMINS W/ FOLIC ACID TABLET (FP) PO SCH (09:53)
[2022-12-12] MEDS: levETIRAcetam 500 MG TABLET (FP) PO SCH (09:53)
[2022-12-12] MEDS: METHOCARBAMOL 500 MG TABLET PO PRN (09:53)
[2022-12-12] MEDS: ESCITALOPRAM OXALATE 20 MG TABLET PO SCH (09:54)
[2022-12-12] MEDS: GABAPENTIN 100 MG CAPSULE PO SCH (09:54)
[2022-12-13] MEDS ORDERED: chlordiazePOXIDE HCL 10 MG CAPSULE PO ONE (05:00)
[2022-12-15] MEDS ORDERED: levETIRAcetam 500 MG/5 ML INJECTION VIAL IVPB ONE (00:44)
== END 2022-12-12 11:00 | disposition home or self-care (01) | DRG 773 ==
LOC: YASAS 09:28 → Y6N 11:25
PROVIDERS: ADMIT Allergy & Immunology; ATTEND Family Medicine
PROC: HZ2ZZZZ Detoxification Services for Substance Abuse Treatment (ICD-10-PCS; principal; 2022-12-09)
DX: F11.23 Opioid dependence with withdrawal (principal); F10.230 Alcohol dependence with withdrawal, uncomplicated; F14.20 Cocaine dependence, uncomplicated; F12.20 Cannabis dependence, uncomplicated; F17.210 Nicotine dependence, cigarettes, uncomplicated; F31.81 Bipolar II disorder; F19.282 Other psychoactive substance dependence with psychoactive substance-induced sleep disorder; F43.10 Post-traumatic stress disorder, unspecified; F41.9 Anxiety disorder, unspecified; K21.9 Gastro-esophageal reflux disease without esophagitis; Z62.810 Personal history of physical and sexual abuse in childhood; Z59.00 Homelessness unspecified
CPT/HCPCS: 36415; 80053; 82607; 82746; 83540; 83550; 85027; 86780; 87811; C9803-CS; U0003; U0005

== ENCOUNTER 2022-12-14 22:46 | Inpatient (IN) | payer OTHER ==
[2022-12-14] MEDS ORDERED: SODIUM CHLORIDE 500 ML IV STA (22:58)
[2022-12-14 23:45] LABS: BASO % 0.7 % (0-2.0); EOS % 0.8 % (0-4.5); HEMATOCRIT 33.8 % (32.4-45.2); HEMOGLOBIN 10.8 GM/dL (10.7-15.3); LYMPH % 24.6 % (8-40); MCH 23.1 pg (25.7-33.7); MCHC 31.9 g/dl (32.0-36.0); MEAN CELL VOLUME 72.4 fl (80-96); MEAN PLT VOLUME 8.3 fl (7.5-11.1); MONO % 5.7 % (3.8-10.2); NEUT % 68.2 % (42.8-82.8); PLATELET COUNT 561 10^3/uL (134-434); RBC 4.66 M/mm3 (3.60-5.2); RDW 19.6 % (11.6-15.6); WHITE BLOOD COUNT 9.1 K/mm3 (4.0-10.0)
[2022-12-14] MEDS ORDERED: MIDAZOLAM HCL 2 MG/2 ML SINGLE DOSE VIAL IM ONE (23:47)
[2022-12-14] MEDS ORDERED: MIDAZOLAM HCL 2 MG/2 ML SINGLE DOSE VIAL IVPUSH ONE (23:48)
[2022-12-15 00:01] LABS: CALCIUM 9.4 mg/dL (8.5-10.1)
[2022-12-15 00:02] LABS: ALBUMIN 3.7 g/dl (3.4-5.0); BLOOD UREA NITROGEN 8.4 mg/dL (7-18)
[2022-12-15 00:05] LABS: CREATININE 0.6 mg/dL (0.55-1.3)
[2022-12-15 00:06] LABS: TOT PROT 7.7 g/dl (6.4-8.2)
[2022-12-15 00:07] LABS: BILIRUBIN,TOTAL 0.3 mg/dL (0.2-1)
[2022-12-15] MEDS ORDERED: diazePAM CARPU-JECT 10 MG/2 ML DISP.SYRIN IVPUSH ONE ×6 (00:30→02:10)
[2022-12-15] MEDS ORDERED: levETIRAcetam 500 MG/5 ML INJECTION VIAL IVPB ONE ×3 (00:45→00:51)
[2022-12-15 00:49] LABS: LACTIC ACID 6.1 mmol/L (0.4-2.0)
[2022-12-15] MEDS ORDERED: LORazepam 2 MG/ML SDV VIAL IVPUSH ONE ×2 (01:18→18:15)
[2022-12-15] MEDS ORDERED: diazePAM CARPU-JECT 10 MG/2 ML DISP.SYRIN ONE ×3 (01:25→01:49)
[2022-12-15] MEDS ORDERED: HALOPERIDOL LACTATE 5 MG/ML IM ONE (01:48)
[2022-12-15] MEDS: DEXMEDETOMIDINE PREMIX 400 MCG/100 ML BAG IVPB SCH ×2 (02:21→23:04)
[2022-12-15 02:35] LABS: METHADONE, UR NEGATIVE (NEGATIVE); PHENCYCLIDINE,URINE NEGATIVE (NEGATIVE)
[2022-12-15 02:36] LABS: COCAINE, UR NEGATIVE (NEGATIVE); OPIATES, URI NEGATIVE (NEGATIVE); URINE BARBITURATES NEGATIVE (NEGATIVE)
[2022-12-15 02:44] LABS: URINE AMPHETAMINES NEGATIVE (NEGATIVE); URINE BENZODIAZEPINES POSITIVE (NEGATIVE)
[2022-12-15] MEDS ORDERED: SODIUM CHLORIDE 0.9% 500 ML INFUS.BAG IV ONE (02:55)
[2022-12-15] MEDS ORDERED: FOLIC ACID INJECTION - 1 MG, THIAMINE HCL 100 MG, MULTIVIT INJECTION ADULT 10 ML in SOD... IVPB ONE (03:03)
[2022-12-15] MEDS ORDERED: diazePAM CARPU-JECT 10 MG/2 ML DISP.SYRIN IVPUSH PRN ×5 (03:23→18:15)
[2022-12-15 05:21] VITALS: BMI 23.3
[2022-12-15] MEDS ORDERED: LACTATED RINGERS SOLUTION 1000 ML INFUS.BAG IV ONE (08:45)
[2022-12-15] MEDS: levETIRAcetam 500 MG/5 ML INJECTION VIAL IVPB SCH ×2 (09:03→21:22)
[2022-12-15] MEDS: MUPIROCIN 2% TOPICAL OINTMENT FOR DECOLONIZATION NS SCH ×3 (11:00→21:22)
[2022-12-15] MEDS: HEPARIN NA (PORCINE) 5,000 UNITS/ML 1ML VIAL SQ SCH ×2 (11:12→21:22)
[2022-12-15] MEDS: FOLIC ACID 1 MG TABLET (FP) PO SCH (11:12)
[2022-12-15] MEDS: THIAMINE HCL 100 MG TABLET (FP) PO SCH ×2 (13:43→21:22)
[2022-12-15] MEDS: diazePAM CARPU-JECT 10 MG/2 ML DISP.SYRIN IVPUSH PRN ×2 (15:14→17:03)
[2022-12-15] MEDS ORDERED: LORazepam 2 MG/ML SDV VIAL IVPUSH PRN (20:56)
[2022-12-15] MEDS ORDERED: CHLORHEXIDINE GLUCONATE 4% CLEANSER FOR DECOLONIZATION TP SCH (22:00)
[2022-12-16] MEDS: LORazepam 2 MG/ML SDV VIAL IVPUSH PRN ×4 (01:11→14:48)
[2022-12-16] MEDS: THIAMINE HCL 100 MG TABLET (FP) PO SCH ×2 (06:41→14:49)
[2022-12-16 07:19] LABS: BASO % 0.9 % (0-2.0); EOS % 2.8 % (0-4.5); HEMATOCRIT 31.7 % (32.4-45.2); HEMOGLOBIN 9.9 GM/dL (10.7-15.3); LYMPH % 33.8 % (8-40); MCHC 31.3 g/dl (32.0-36.0); MEAN CELL VOLUME 73.4 fl (80-96); MEAN PLT VOLUME 8.5 fl (7.5-11.1); MONO % 8.1 % (3.8-10.2); NEUT % 54.4 % (42.8-82.8); PLATELET COUNT 326 10^3/uL (134-434); RBC 4.32 M/mm3 (3.60-5.2); RDW 19.6 % (11.6-15.6); WHITE BLOOD COUNT 7.1 K/mm3 (4.0-10.0)
[2022-12-16 08:18] LABS: CALCIUM 8.4 mg/dL (8.5-10.1)
[2022-12-16 08:19] LABS: BLOOD UREA NITROGEN 5.6 mg/dL (7-18); MAGNESIUM 1.6 mg/dL (1.8-2.4)
[2022-12-16 08:21] LABS: CREATININE 0.5 mg/dL (0.55-1.3)
[2022-12-16 08:23] LABS: BILIRUBIN,TOTAL 0.4 mg/dL (0.2-1); TOT PROT 5.9 g/dl (6.4-8.2)
[2022-12-16 08:27] LABS: ALBUMIN 2.8 g/dl (3.4-5.0)
[2022-12-16] MEDS ORDERED: DEXMEDETOMIDINE PREMIX 400 MCG/100 ML BAG IVPB ONE (10:00)
[2022-12-16] MEDS: levETIRAcetam 500 MG/5 ML INJECTION VIAL IVPB SCH (10:17)
[2022-12-16] MEDS: HEPARIN NA (PORCINE) 5,000 UNITS/ML 1ML VIAL SQ SCH (10:17)
[2022-12-16] MEDS: MUPIROCIN 2% TOPICAL OINTMENT FOR DECOLONIZATION NS SCH (10:18)
[2022-12-16] MEDS: FOLIC ACID 1 MG TABLET (FP) PO SCH (10:18)
[2022-12-16] MEDS: DEXMEDETOMIDINE PREMIX 400 MCG/100 ML BAG IVPB SCH (10:20)
[2022-12-16] MEDS ORDERED: MAGNESIUM 2GM/50ML STERILE WATER IVPB IVPB ONE (15:11)
[2022-12-16] MEDS ORDERED: POTASSIUM CHLORIDE TABS 20 MEQ TABLET.ER (FP) PO ONE (15:11)
[2022-12-16 16:42] VITALS: TEMP 98.6
[2022-12-16 18:50] VITALS: BP 120/86; PULSE 93; RESP 20
== END 2022-12-16 19:25 | disposition left against medical advice (07) | DRG 770 ==
LOC: EDBD 22:46 → JER 22:46 → MERGE 12-15 00:49 → JERBED 12-15 00:49 → JICU 12-15 04:23
PROVIDERS: ADMIT Internal Medicine Pulmonary Disease; ATTEND Internal Medicine Pulmonary Disease
PROC: HZ2ZZZZ Detoxification Services for Substance Abuse Treatment (ICD-10-PCS; principal; 2022-12-14)
DX: F10.231 Alcohol dependence with withdrawal delirium (principal); F13.10 Sedative, hypnotic or anxiolytic abuse, uncomplicated; F12.229 Cannabis dependence with intoxication, unspecified; F19.10 Other psychoactive substance abuse, uncomplicated; F17.210 Nicotine dependence, cigarettes, uncomplicated; F31.9 Bipolar disorder, unspecified; G40.909 Epilepsy, unspecified, not intractable, without status epilepticus; R45.1 Restlessness and agitation; U07.1 COVID-19; E87.20 Acidosis, unspecified; D50.9 Iron deficiency anemia, unspecified
CPT/HCPCS: 36415; 70450-TC; 80053; 80307; 82550; 83605; 83735; 84100; 84703; 85025; 93005; 93010; 99285-25; C9803-CS; J1644; U0003; U0005

== ENCOUNTER 2022-12-17 12:55 | Inpatient (IN) | payer OTHER ==
[2022-12-17] MEDS ORDERED: LORazepam 2 MG/ML SDV VIAL IM ONE (13:02)
[2022-12-17] MEDS ORDERED: diazePAM CARPU-JECT 10 MG/2 ML DISP.SYRIN IVPUSH ONE ×4 (13:28→14:23)
[2022-12-17] MEDS ORDERED: diazePAM CARPU-JECT 10 MG/2 ML DISP.SYRIN ONE ×4 (13:29→14:20)
[2022-12-17] MEDS ORDERED: levETIRAcetam 500 MG/5 ML INJECTION VIAL IVPB ONE ×2 (13:47→13:51)
[2022-12-17] MEDS ORDERED: LACTATED RINGERS SOLUTION 1000 ML INFUS.BAG IV ONE (14:10)
[2022-12-17 14:27] VITALS: BMI 23.9
[2022-12-17] MEDS ORDERED: DEXMEDETOMIDINE PREMIX 400 MCG/100 ML BAG IVPB SCH (14:30)
[2022-12-17] MEDS ORDERED: LORazepam 2 MG/ML SDV VIAL IVPUSH ONE ×2 (14:36→16:04)
[2022-12-17 14:43] LABS: BASO % 0.5 % (0-2.0); EOS % 0.7 % (0-4.5); HEMATOCRIT 36.3 % (32.4-45.2); HEMOGLOBIN 11.5 GM/dL (10.7-15.3); LYMPH % 16.2 % (8-40); MCH 23.2 pg (25.7-33.7); MCHC 31.7 g/dl (32.0-36.0); MEAN CELL VOLUME 73.4 fl (80-96); MEAN PLT VOLUME 8.6 fl (7.5-11.1); MONO % 3.7 % (3.8-10.2); NEUT % 78.9 % (42.8-82.8); PLATELET COUNT 432 10^3/uL (134-434); RBC 4.94 M/mm3 (3.60-5.2); RDW 19.8 % (11.6-15.6); WHITE BLOOD COUNT 8.9 K/mm3 (4.0-10.0)
[2022-12-17] MEDS ORDERED: morphine CARPU-JECT 4 MG/1 ML DISP.SYRIN IVPUSH ONE (15:03)
[2022-12-17] MEDS ORDERED: SODIUM CHLORIDE 0.9% 500 ML INFUS.BAG IV ONE (15:03)
[2022-12-17] MEDS ORDERED: morphine SULFATE 4 MG/ML VIAL ONE (15:07)
[2022-12-17 15:11] LABS: BLOOD UREA NITROGEN 5.8 mg/dL (7-18); CALCIUM 9.3 mg/dL (8.5-10.1)
[2022-12-17 15:14] LABS: CREATININE 0.6 mg/dL (0.55-1.3)
[2022-12-17 15:16] LABS: BILIRUBIN,TOTAL 0.2 mg/dL (0.2-1)
[2022-12-17 15:26] LABS: ALBUMIN 3.8 g/dl (3.4-5.0)
[2022-12-17] MEDS: LORazepam 2 MG/ML SDV VIAL IVPUSH PRN ×2 (19:05→23:02)
[2022-12-17] MEDS ORDERED: FOLIC ACID INJECTION - 1 MG, THIAMINE HCL 100 MG, MULTIVIT INJECTION ADULT 10 ML in SOD... IVPB ONE (19:30)
[2022-12-17] MEDS ORDERED: ACETAMINOPHEN 325 MG TABLET (FP) PO PRN (20:32)
[2022-12-17] MEDS: levETIRAcetam 500 MG TABLET (FP) PO SCH (21:31)
[2022-12-17] MEDS ORDERED: MUPIROCIN 2% TOPICAL OINTMENT FOR DECOLONIZATION NS SCH (22:00)
[2022-12-17] MEDS ORDERED: QUEtiapine FUMARATE 100 MG TABLET (FP) PO SCH (22:00)
[2022-12-17] MEDS ORDERED: CHLORHEXIDINE GLUCONATE 4% CLEANSER FOR DECOLONIZATION TP SCH (22:00)
[2022-12-18] MEDS: LORazepam 2 MG/ML SDV VIAL IVPUSH PRN ×4 (06:21→21:29)
[2022-12-18] MEDS ORDERED: LORazepam 2 MG/ML SDV VIAL IVPUSH PRN (09:43)
[2022-12-18] MEDS: BUPRENORPHINE/NALOXONE 2 MG/0.5 MG FILM PACKET SL SCH (09:43)
[2022-12-18] MEDS: levETIRAcetam 500 MG TABLET (FP) PO SCH ×2 (09:44→21:57)
[2022-12-18 15:57] LABS: EPI CELLS >36 /uL (0-25.1); HYALINE CASTS 0 /uL (0-3.1); URINE APPEARANCE CLOUDY; URINE BACTERIA 1365 /uL (0-1359); URINE BILIRUBIN NEGATIVE (NEGATIVE); URINE COLOR YELLOW; URINE GLUCOSE (UA) NEGATIVE (NEGATIVE); URINE KETONE NEGATIVE (NEGATIVE); URINE LEUK ESTERASE NEGATIVE (NEGATIVE); URINE NITRITE NEGATIVE (NEGATIVE); URINE PROTEIN NEGATIVE (NEGATIVE); URINE RBC 8 /uL (0-23.9)
[2022-12-18] MEDS: QUEtiapine FUMARATE 100 MG TABLET (FP) PO SCH (21:58)
[2022-12-19] MEDS: LORazepam 2 MG/ML SDV VIAL IVPUSH PRN ×3 (04:32→15:50)
[2022-12-19] MEDS: BUPRENORPHINE/NALOXONE 2 MG/0.5 MG FILM PACKET SL SCH (09:17)
[2022-12-19] MEDS: levETIRAcetam 500 MG TABLET (FP) PO SCH ×2 (09:18→21:35)
[2022-12-19] MEDS: ACETAMINOPHEN 325 MG TABLET (FP) PO PRN ×2 (15:50→21:38)
[2022-12-19] MEDS: ONDANSETRON *ODT* 4 MG TABLET SL PRN (20:55)
[2022-12-19] MEDS: QUEtiapine FUMARATE 100 MG TABLET (FP) PO SCH (21:36)
[2022-12-19] MEDS: LORazepam 1 MG TABLET PO PRN (21:36)
[2022-12-20] MEDS: ACETAMINOPHEN 325 MG TABLET (FP) PO PRN (06:10)
[2022-12-20] MEDS: LORazepam 1 MG TABLET PO PRN ×2 (06:10→10:09)
[2022-12-20 09:11] LABS: BASO % 0.9 % (0-2.0); HEMATOCRIT 32.7 % (32.4-45.2); HEMOGLOBIN 10.3 GM/dL (10.7-15.3); LYMPH % 35.9 % (8-40); MCH 23.5 pg (25.7-33.7); MCHC 31.5 g/dl (32.0-36.0); MEAN CELL VOLUME 74.5 fl (80-96); MEAN PLT VOLUME 8.5 fl (7.5-11.1); NEUT % 51.2 % (42.8-82.8); PLATELET COUNT 388 10^3/uL (134-434); RBC 4.39 M/mm3 (3.60-5.2); RDW 19.8 % (11.6-15.6); WHITE BLOOD COUNT 6.6 K/mm3 (4.0-10.0)
[2022-12-20 09:30] LABS: CALCIUM 9.2 mg/dL (8.5-10.1)
[2022-12-20 09:31] LABS: ALBUMIN 3.2 g/dl (3.4-5.0)
[2022-12-20 09:34] LABS: CREATININE 0.6 mg/dL (0.55-1.3)
[2022-12-20 09:35] LABS: BILIRUBIN,TOTAL 0.2 mg/dL (0.2-1); TOT PROT 6.5 g/dl (6.4-8.2)
[2022-12-20] MEDS: PANTOPRAZOLE 40 MG TABLET PO SCH (10:05)
[2022-12-20] MEDS: BUPRENORPHINE/NALOXONE 2 MG/0.5 MG FILM PACKET SL SCH (10:05)
[2022-12-20] MEDS: FOLIC ACID 1 MG TABLET (FP) PO SCH (10:05)
[2022-12-20] MEDS: levETIRAcetam 500 MG TABLET (FP) PO SCH ×2 (10:05→21:13)
[2022-12-20] MEDS: THIAMINE HCL 100 MG TABLET (FP) PO SCH (10:05)
[2022-12-20] MEDS: ONDANSETRON *ODT* 4 MG TABLET SL PRN (16:18)
[2022-12-20] MEDS ORDERED: TRIMETHOBENZAMIDE HCL 200MG/2ML INJ IM PRN (18:08)
[2022-12-20] MEDS: clonazePAM 0.5 MG TABLET PO SCH (21:10)
[2022-12-20] MEDS: QUEtiapine FUMARATE 100 MG TABLET (FP) PO SCH (21:13)
[2022-12-21 09:44] LABS: HEMATOCRIT 35.6 % (32.4-45.2); HEMOGLOBIN 11.7 GM/dL (10.7-15.3); MEAN CELL VOLUME 81.6 fl (80-96); MEAN PLT VOLUME 9.8 fl (7.5-11.1); PLATELET COUNT 448 10^3/uL (134-434); RBC 4.36 M/mm3 (3.60-5.2)
[2022-12-21 09:51] LABS: CALCIUM 9.5 mg/dL (8.5-10.1)
[2022-12-21 09:52] LABS: MAGNESIUM 2.1 mg/dL (1.8-2.4)
[2022-12-21 09:53] LABS: BLOOD UREA NITROGEN 14.2 mg/dL (7-18)
[2022-12-21 09:55] LABS: CREATININE 0.8 mg/dL (0.55-1.3); PHOSPHOROUS 5.6 mg/dL (2.5-4.9)
[2022-12-21] MEDS: FOLIC ACID 1 MG TABLET (FP) PO SCH (10:12)
[2022-12-21] MEDS: clonazePAM 0.5 MG TABLET PO SCH ×2 (10:12→21:12)
[2022-12-21] MEDS: levETIRAcetam 500 MG TABLET (FP) PO SCH ×2 (10:12→21:12)
[2022-12-21] MEDS: PANTOPRAZOLE 40 MG TABLET PO SCH (10:12)
[2022-12-21] MEDS: THIAMINE HCL 100 MG TABLET (FP) PO SCH (10:12)
[2022-12-21] MEDS: BUPRENORPHINE/NALOXONE 2 MG/0.5 MG FILM PACKET SL SCH (10:12)
[2022-12-21] MEDS: ENOXAPARIN NA (PORCINE) 40 MG/0.4 ML DISP.SYRIN SQ SCH (16:28)
[2022-12-21] MEDS: QUEtiapine FUMARATE 100 MG TABLET (FP) PO SCH (21:12)
[2022-12-22] MEDS: ENOXAPARIN NA (PORCINE) 40 MG/0.4 ML DISP.SYRIN SQ SCH (09:24)
[2022-12-22] MEDS: BUPRENORPHINE/NALOXONE 2 MG/0.5 MG FILM PACKET SL SCH (09:24)
[2022-12-22] MEDS: clonazePAM 0.5 MG TABLET PO SCH ×3 (09:25→22:25)
[2022-12-22] MEDS: ESCITALOPRAM OXALATE 10 MG TABLET PO SCH (09:25)
[2022-12-22] MEDS: FOLIC ACID 1 MG TABLET (FP) PO SCH (09:25)
[2022-12-22] MEDS: levETIRAcetam 500 MG TABLET (FP) PO SCH ×2 (09:25→22:25)
[2022-12-22] MEDS: THIAMINE HCL 100 MG TABLET (FP) PO SCH (09:25)
[2022-12-22] MEDS: PANTOPRAZOLE 40 MG TABLET PO SCH (09:25)
[2022-12-22] MEDS ORDERED: POLYETHYLENE GLYCOL (HEALTHYLAX) 3350 17 GM PACKET PO ONE (16:15)
[2022-12-22] MEDS: QUEtiapine FUMARATE 100 MG TABLET (FP) PO SCH (22:25)
[2022-12-23] MEDS: ENOXAPARIN NA (PORCINE) 40 MG/0.4 ML DISP.SYRIN SQ SCH (10:16)
[2022-12-23] MEDS: FOLIC ACID 1 MG TABLET (FP) PO SCH (10:16)
[2022-12-23] MEDS: PANTOPRAZOLE 40 MG TABLET PO SCH (10:16)
[2022-12-23] MEDS: THIAMINE HCL 100 MG TABLET (FP) PO SCH (10:16)
[2022-12-23] MEDS: levETIRAcetam 500 MG TABLET (FP) PO SCH ×2 (10:16→21:28)
[2022-12-23] MEDS: BUPRENORPHINE/NALOXONE 2 MG/0.5 MG FILM PACKET SL SCH (10:16)
[2022-12-23] MEDS: clonazePAM 0.5 MG TABLET PO SCH ×2 (10:16→21:28)
[2022-12-23] MEDS: ESCITALOPRAM OXALATE 10 MG TABLET PO SCH (10:17)
[2022-12-23] MEDS ORDERED: PEG 3350/NA SULF BICARB CL/KCL 4000 ML SOLN.RECON PO ONE (11:00)
[2022-12-23] MEDS ORDERED: clonazePAM 0.5 MG TABLET PO ONE (15:57)
[2022-12-23] MEDS: QUEtiapine FUMARATE 100 MG TABLET (FP) PO SCH (21:28)
[2022-12-24 09:17] LABS: HEMATOCRIT 28.4 % (32.4-45.2); HEMOGLOBIN 9.1 GM/dL (10.7-15.3); MEAN PLT VOLUME 8.7 fl (7.5-11.1); PLATELET COUNT 382 10^3/uL (134-434); RBC 3.79 M/mm3 (3.60-5.2)
[2022-12-24 09:53] LABS: CALCIUM 8.6 mg/dL (8.5-10.1)
[2022-12-24 09:54] LABS: BLOOD UREA NITROGEN 11.6 mg/dL (7-18)
[2022-12-24 09:56] LABS: CREATININE 0.6 mg/dL (0.55-1.3); PHOSPHOROUS 4.9 mg/dL (2.5-4.9)
[2022-12-24] MEDS: levETIRAcetam 500 MG TABLET (FP) PO SCH ×2 (10:24→22:19)
[2022-12-24] MEDS: clonazePAM 0.5 MG TABLET PO SCH ×2 (10:24→22:20)
[2022-12-24] MEDS: FOLIC ACID 1 MG TABLET (FP) PO SCH (10:24)
[2022-12-24] MEDS: ESCITALOPRAM OXALATE 10 MG TABLET PO SCH (10:24)
[2022-12-24] MEDS: BUPRENORPHINE/NALOXONE 2 MG/0.5 MG FILM PACKET SL SCH (10:25)
[2022-12-24] MEDS: PANTOPRAZOLE 40 MG TABLET PO SCH (10:25)
[2022-12-24] MEDS: ENOXAPARIN NA (PORCINE) 40 MG/0.4 ML DISP.SYRIN SQ SCH ×2 (10:25→10:32)
[2022-12-24] MEDS: THIAMINE HCL 100 MG TABLET (FP) PO SCH (10:25)
[2022-12-24] MEDS: QUEtiapine FUMARATE 100 MG TABLET (FP) PO SCH (22:20)
[2022-12-25] MEDS: FOLIC ACID 1 MG TABLET (FP) PO SCH (10:11)
[2022-12-25] MEDS: PANTOPRAZOLE 40 MG TABLET PO SCH (10:11)
[2022-12-25] MEDS: levETIRAcetam 500 MG TABLET (FP) PO SCH ×2 (10:11→22:16)
[2022-12-25] MEDS: clonazePAM 0.5 MG TABLET PO SCH ×2 (10:11→22:16)
[2022-12-25] MEDS: THIAMINE HCL 100 MG TABLET (FP) PO SCH (10:12)
[2022-12-25] MEDS: ENOXAPARIN NA (PORCINE) 40 MG/0.4 ML DISP.SYRIN SQ SCH (10:12)
[2022-12-25] MEDS: ESCITALOPRAM OXALATE 10 MG TABLET PO SCH (10:12)
[2022-12-25 14:00] VITALS: RESP 18
[2022-12-25] MEDS: QUEtiapine FUMARATE 100 MG TABLET (FP) PO SCH (22:17)
[2022-12-26] MEDS: FOLIC ACID 1 MG TABLET (FP) PO SCH (09:06)
[2022-12-26] MEDS: THIAMINE HCL 100 MG TABLET (FP) PO SCH (09:06)
[2022-12-26] MEDS: clonazePAM 0.5 MG TABLET PO SCH (09:07)
[2022-12-26] MEDS: levETIRAcetam 500 MG TABLET (FP) PO SCH (09:07)
[2022-12-26] MEDS: PANTOPRAZOLE 40 MG TABLET PO SCH (09:07)
[2022-12-26] MEDS: ESCITALOPRAM OXALATE 10 MG TABLET PO SCH (09:11)
[2022-12-26] MEDS: ENOXAPARIN NA (PORCINE) 40 MG/0.4 ML DISP.SYRIN SQ SCH (09:11)
[2022-12-26 14:14] VITALS: BP 107/70; PULSE 98; TEMP 98.7
== END 2022-12-26 21:19 | disposition left against medical advice (07) | DRG 770 ==
LOC: JER 12:55 → JERBED 17:12 → JICU 18:18 → J4W 22:23 → J6S 12-18 21:04
PROVIDERS: ADMIT Internal Medicine Pulmonary Disease; ATTEND Internal Medicine
DX: F10.220 Alcohol dependence with intoxication, uncomplicated (principal); F31.9 Bipolar disorder, unspecified; Z86.16 Personal history of COVID-19; F19.10 Other psychoactive substance abuse, uncomplicated; F14.20 Cocaine dependence, uncomplicated; G40.909 Epilepsy, unspecified, not intractable, without status epilepticus; R94.31 Abnormal electrocardiogram [ECG] [EKG]; R45.851 Suicidal ideations; G92.8 Other toxic encephalopathy; F11.20 Opioid dependence, uncomplicated; R10.9 Unspecified abdominal pain; R00.0 Tachycardia, unspecified; Z53.29 Procedure and treatment not carried out because of patient's decision for other reasons
CPT/HCPCS: 36415; 80048; 80053; 80164; 80177; 80307; 81003; 82140; 83690; 83735; 84100; 84443; 84484; 84703; 85025; 85027; 86850; 86870; 86900; 86901; 86902; 93005; 93010; 99291; 99292; C9803-CS; Q0162; U0003; U0005

== ENCOUNTER 2024-01-29 16:42 | Inpatient (IN) | payer OTHER ==
[2024-01-29 17:42] VITALS: BMI 25.3
[2024-01-29] MEDS ORDERED: IBUPROFEN 600 MG TABLET (FP) PO PRN (19:32)
[2024-01-29] MEDS ORDERED: guaiFENesin 600 MG TABLET.ER (FP) PO PRN (19:32)
[2024-01-29] MEDS ORDERED: ONDANSETRON *ODT* 4 MG TABLET SL PRN (19:32)
[2024-01-29] MEDS ORDERED: IBUPROFEN 400 MG TABLET (FP) PO PRN (19:32)
[2024-01-29] MEDS ORDERED: BENZONATATE 200 MG CAPSULE PO PRN (19:32)
[2024-01-29] MEDS ORDERED: NALOXONE HCL 0.4 MG/ML VIAL IM PRN (19:32)
[2024-01-29] MEDS ORDERED: MAGNESIUM HYDROX 2400MG/30ML ORAL SUSPENSION 30 ML CUP PO PRN (19:32)
[2024-01-29] MEDS ORDERED: BISMUTH SUBSALICYLATE 524 MG/30 ML PO PRN (19:32)
[2024-01-29] MEDS ORDERED: DICYCLOMINE HCL 10 MG CAPSULE PO PRN (19:32)
[2024-01-29] MEDS ORDERED: LOPERAMIDE HCL 2 MG CAPSULE PO PRN (19:32)
[2024-01-29] MEDS ORDERED: BENZOCAINE/MENTHOL (CHLORASEPTIC ) LOZENGE MM PRN (19:32)
[2024-01-29] MEDS ORDERED: MAG HYDROX/AL HYDROX/SIMETH 30 ML UNIT-DOSE CUP PO PRN (19:32)
[2024-01-29] MEDS ORDERED: NALOXONE HCL (KLOXXADO) 8 MG SPRAY NS PRN (19:32)
[2024-01-29] MEDS ORDERED: ACETAMINOPHEN 325 MG TABLET (FP) PO PRN (19:32)
[2024-01-29] MEDS ORDERED: POLYETHYLENE GLYCOL (HEALTHYLAX) 3350 17 GM PACKET PO PRN (19:32)
[2024-01-29] MEDS ORDERED: LORazepam 1 MG TABLET PO PRN (19:36)
[2024-01-29] MEDS: LORazepam 2 MG TABLET PO SCH (22:14)
[2024-01-29] MEDS: THIAMINE HCL 100 MG TABLET (FP) PO SCH (22:15)
[2024-01-29] MEDS: MELATONIN 5 MG TABLETS PO SCH (22:15)
[2024-01-30] MEDS: hydrOXYzine PAMOATE 25 MG CAPSULE (FP) PO PRN (05:09)
[2024-01-30] MEDS: PRENATAL VITAMINS W/ FOLIC ACID TABLET (FP) PO SCH (10:05)
[2024-01-30] MEDS: ARIPiprazole 5 MG TABLET PO SCH (10:05)
[2024-01-30] MEDS: NICOTINE 14 MG/24 HOURS TOPICAL PATCH TD SCH (10:06)
[2024-01-30] MEDS: METHOCARBAMOL 500 MG TABLET PO PRN (15:28)
[2024-01-30] MEDS: NICOTINE POLACRILEX 2 MG GUM BUC PRN (17:36)
[2024-01-30] MEDS: diazePAM 5 MG TABLET PO PRN (19:38)
[2024-01-30] MEDS: levETIRAcetam 500 MG TABLET (FP) PO SCH (22:23)
[2024-01-30] MEDS: SUVOREXANT 10 MG TABLET PO PRN (22:23)
[2024-01-30] MEDS: diazePAM 5 MG TABLET PO SCH (23:05)
[2024-01-31] MEDS ORDERED: LORazepam 1 MG TABLET PO SCH (05:00)
[2024-01-31 06:36] VITALS: TEMP 97.6
[2024-01-31 09:34] VITALS: BP 123/85; PULSE 108; RESP 18
[2024-02-01] MEDS ORDERED: LORazepam 0.5 MG TABLET PO PRN
[2024-02-01] MEDS ORDERED: LORazepam 0.5 MG TABLET PO SCH (05:00)
[2024-02-01] MEDS ORDERED: diazePAM 5 MG TABLET PO SCH (06:00)
[2024-02-02] MEDS ORDERED: LORazepam 0.5 MG TABLET PO ONE (05:00)
[2024-02-02] MEDS ORDERED: diazePAM 5 MG TABLET PO ONE (06:00)
== END 2024-01-31 11:40 | disposition left against medical advice (07) | DRG 770 ==
LOC: YASAS 16:42 → Y6N 20:20
PROVIDERS: ADMIT Allergy & Immunology; ATTEND Surgery
PROC: HZ2ZZZZ Detoxification Services for Substance Abuse Treatment (ICD-10-PCS; principal; 2024-01-29)
DX: F10.230 Alcohol dependence with withdrawal, uncomplicated (principal); F17.210 Nicotine dependence, cigarettes, uncomplicated; F19.282 Other psychoactive substance dependence with psychoactive substance-induced sleep disorder; F41.0 Panic disorder [episodic paroxysmal anxiety]; F41.9 Anxiety disorder, unspecified; G40.909 Epilepsy, unspecified, not intractable, without status epilepticus; I10 Essential (primary) hypertension; K21.9 Gastro-esophageal reflux disease without esophagitis; F41.8 Other specified anxiety disorders; Z91.199 Patient's noncompliance with other medical treatment and regimen due to unspecified reason; Z86.59 Personal history of other mental and behavioral disorders; Z88.8 Allergy status to other drugs, medicaments and biological substances
CPT/HCPCS: 93005; 93010

== ENCOUNTER 2024-08-12 13:02 | Inpatient (IN) | payer OTHER ==
[2024-08-12 14:02] VITALS: BMI 25.9
[2024-08-12] MEDS ORDERED: LOPERAMIDE HCL 2 MG CAPSULE PO PRN (14:32)
[2024-08-12] MEDS ORDERED: ONDANSETRON *ODT* 4 MG TABLET SL PRN (14:32)
[2024-08-12] MEDS ORDERED: BISMUTH SUBSALICYLATE 524 MG/30 ML PO PRN (14:32)
[2024-08-12] MEDS ORDERED: LORazepam 1 MG TABLET PO PRN (14:32)
[2024-08-12] MEDS ORDERED: NALOXONE (NARCAN) HCL 4 MG/0.1 ML SPRAY NS PRN (14:32)
[2024-08-12] MEDS ORDERED: ACETAMINOPHEN 325 MG TABLET (FP) PO PRN (14:32)
[2024-08-12] MEDS ORDERED: MAGNESIUM HYDROX 2400MG/30ML ORAL SUSPENSION 30 ML CUP PO PRN (14:32)
[2024-08-12] MEDS ORDERED: DICYCLOMINE HCL 10 MG CAPSULE PO PRN (14:32)
[2024-08-12] MEDS ORDERED: MAG HYDROX/AL HYDROX/SIMETH 30 ML UNIT-DOSE CUP PO PRN (14:32)
[2024-08-12] MEDS ORDERED: POLYETHYLENE GLYCOL (HEALTHYLAX) 3350 17 GM PACKET PO PRN (14:32)
[2024-08-12] MEDS ORDERED: IBUPROFEN 400 MG TABLET (FP) PO PRN (14:32)
[2024-08-12] MEDS ORDERED: BUPRENORPHINE/NALOXONE 0.5 MG/0.125 MG FILM ONE (15:47)
[2024-08-12] MEDS ORDERED: methaDONE HCL 10 MG TABLET (FOR DETOX USE ONLY) ONE (15:47)
[2024-08-12] MEDS: methaDONE HCL 10 MG TABLET (FOR DETOX USE ONLY) PO ONE (15:52)
[2024-08-12] MEDS: BUPRENORPHINE/NALOXONE 0.5 MG/0.125 MG FILM SL ONE ×2 (15:52→22:14)
[2024-08-12] MEDS: PRENATAL VITAMINS W/ FOLIC ACID TABLET (FP) PO SCH (16:57)
[2024-08-12] MEDS: NICOTINE 21 MG/24 HOURS TOPICAL PATCH TD SCH (16:57)
[2024-08-12] MEDS ORDERED: LORazepam 2 MG TABLET ONE (17:01)
[2024-08-12] MEDS: LORazepam 2 MG TABLET PO SCH (17:02)
[2024-08-12] MEDS: NALOXONE (NYS OPIOID OVERDOSE PROGRAM) 4 MG/0.1 ML SPRAY NS ONE (17:08)
[2024-08-12] MEDS: cloNIDine HCL 0.1 MG TABLET PO SCH (17:55)
[2024-08-12] MEDS: MELATONIN 5 MG TABLETS PO SCH (22:14)
[2024-08-12] MEDS: THIAMINE 100 MG TABLET PO SCH (22:14)
[2024-08-12] MEDS: levETIRAcetam 500 MG TABLET (FP) PO SCH (22:14)
[2024-08-12] MEDS: buPROPion HCL 75 MG TABLET PO SCH (22:14)
[2024-08-13] MEDS: guaiFENesin 600 MG TABLET.ER (FP) PO PRN (08:44)
[2024-08-13] MEDS: IBUPROFEN 600 MG TABLET (FP) PO PRN (08:44)
[2024-08-13] MEDS: BUPRENORPHINE/NALOXONE 0.5 MG/0.125 MG FILM SL SCH (10:04)
[2024-08-13] MEDS: GABAPENTIN 300 MG CAPSULE PO SCH (10:32)
[2024-08-13] MEDS ORDERED: NALOXONE (NYS OPIOID OVERDOSE PROGRAM) 4 MG/0.1 ML SPRAY NS PRN (14:27)
[2024-08-13] MEDS: BENZONATATE 200 MG CAPSULE PO PRN (19:21)
[2024-08-13] MEDS: QUEtiapine FUMARATE 100 MG TABLET (FP) PO SCH (22:14)
[2024-08-14] MEDS: NALOXONE (NYS OPIOID OVERDOSE PROGRAM) 4 MG/0.1 ML SPRAY NS ONE (00:20)
[2024-08-14] MEDS: METHOCARBAMOL 500 MG TABLET PO PRN (04:03)
[2024-08-14] MEDS: BENZOCAINE/MENTHOL (CHLORASEPTIC ) LOZENGE MM PRN (04:04)
[2024-08-14] MEDS: LORazepam 1 MG TABLET PO SCH (06:00)
[2024-08-14] MEDS: methaDONE HCL 10 MG TABLET (FOR DETOX USE ONLY) PO ONE (10:33)
[2024-08-14] MEDS: BUPRENORPHINE/NALOXONE 2 MG/0.5 MG FILM PACKET SL SCH (10:34)
[2024-08-14] MEDS: NICOTINE POLACRILEX 2 MG GUM BUC PRN (19:11)
[2024-08-15] MEDS ORDERED: LORazepam 0.5 MG TABLET PO PRN
[2024-08-15] MEDS: LORazepam 0.5 MG TABLET PO SCH (05:43)
[2024-08-15] MEDS: BUPRENORPHINE/NALOXONE 4 MG/1 MG FILM PACKET SL SCH (09:49)
[2024-08-15 10:19] LABS: BASO % 0.5 % (0-2.0); EOS % 5.4 % (0-4.5); HEMATOCRIT 34.5 % (32.4-45.2); LYMPH % 50.1 % (8-40); MCHC 31.8 g/dl (32.0-36.0); MEAN CELL VOLUME 78.6 fl (80-96); MEAN PLT VOLUME 8.8 fl (7.5-11.1); MONO % 6.6 % (3.8-10.2); NEUT % 37.4 % (42.8-82.8); PLATELET COUNT 265 10^3/uL (134-434); RBC 4.38 M/mm3 (3.60-5.2); RDW 18.6 % (11.6-15.6); WHITE BLOOD COUNT 5.1 K/mm3 (4.0-10.0)
[2024-08-15] MEDS ORDERED: NICOTINE POLACRILEX 2 MG GUM BUC PRN (11:04)
[2024-08-15 11:15] LABS: POTASSIUM 3.9 mmol/L (3.5-5.1)
[2024-08-15 11:17] LABS: BLOOD UREA NITROGEN 6.5 mg/dL (7-18); CALCIUM 8.2 mg/dL (8.5-10.1)
[2024-08-15 11:20] LABS: CREATININE 0.6 mg/dL (0.55-1.3)
[2024-08-15 11:22] LABS: BILIRUBIN,TOTAL 0.2 mg/dL (0.2-1); TOT PROT 6.3 g/dl (6.4-8.2)
[2024-08-15] MEDS: hydrOXYzine PAMOATE 25 MG CAPSULE (FP) PO PRN (17:34)
[2024-08-15 18:26] VITALS: BP 115/66; PULSE 94; RESP 16; TEMP 97.6
[2024-08-16] MEDS ORDERED: LORazepam 0.5 MG TABLET PO ONE (05:00)
[2024-08-16] MEDS ORDERED: methaDONE HCL 10 MG TABLET (FOR DETOX USE ONLY) PO ONE (10:00)
[2024-08-16] MEDS ORDERED: BUPRENORPHINE/NALOXONE 8 MG/2 MG FILM PACKET SL SCH (10:00)
[2024-08-17] MEDS ORDERED: BUPRENORPHINE/NALOXONE 8 MG/2 MG FILM PACKET SL SCH (10:00)
== END 2024-08-15 18:17 | disposition home or self-care (01) | DRG 773 ==
LOC: YASAS 13:02 → Y6N 16:40
PROVIDERS: ADMIT Allergy & Immunology; ATTEND Surgery
PROC: HZ2ZZZZ Detoxification Services for Substance Abuse Treatment (ICD-10-PCS; principal; 2024-08-12)
DX: F11.23 Opioid dependence with withdrawal (principal); F10.230 Alcohol dependence with withdrawal, uncomplicated; F13.20 Sedative, hypnotic or anxiolytic dependence, uncomplicated; F17.210 Nicotine dependence, cigarettes, uncomplicated; F31.9 Bipolar disorder, unspecified; F19.282 Other psychoactive substance dependence with psychoactive substance-induced sleep disorder; F19.280 Other psychoactive substance dependence with psychoactive substance-induced anxiety disorder; F19.24 Other psychoactive substance dependence with psychoactive substance-induced mood disorder; F41.9 Anxiety disorder, unspecified; I10 Essential (primary) hypertension; K21.9 Gastro-esophageal reflux disease without esophagitis; Z62.810 Personal history of physical and sexual abuse in childhood; Z63.8 Other specified problems related to primary support group; Z86.16 Personal history of COVID-19; Z56.0 Unemployment, unspecified; Z59.01 Sheltered homelessness; Z88.8 Allergy status to other drugs, medicaments and biological substances
CPT/HCPCS: 0241U-QW; 36415; 80053; 80305; 81025; 85025; 86780; 93005; 93010